=== PATIENT | female | born 1950 | race Hispanic/Latino ===

== ENCOUNTER 2019-12-25 13:30 | Inpatient (IN) | payer MEDICARE, OTHER ==
[~2019-12-25] VITALS: Ht 152.4 cm; Wt 97.2 kg
[2019-12-25] MEDS ORDERED: SODIUM CHLORIDE 0.9% 1000ML 1,000 ML IV STA (14:27)
[2019-12-25] MEDS: CEFTRIAXONE SOD 1 GM/NS 50 ML 50 ML IV SCH (14:35)
[2019-12-25] MEDS: AZITHROMYCIN 500MG/NS 250 ML 250 ML IV SCH (15:05)
--- NOTE | 2019-12-25 15:13 | Diagnostic Imaging Report ---
EXAMINATION: CHEST SINGLE (PORTABLE) INDICATION: Shortness of breath, hypoxia COMPARISON: None FINDINGS: LINES/TUBES:Back or EKG LUNGS:The lungs are moderately inflated. Mild bibasilar patchy opacities appear PLEURA:No pleural effusion or pneumothorax. MEDIASTINUM:The cardiomediastinal silhouette appears normal in size and shape. BONES/SOFT TISSUES:No acute osseous injury. ABDOMEN:No free air under the diaphragm. IMPRESSION: Mild bibasilar patchy opacities can be seen in the setting of interstitial edema or pneumonitis, including of viral etiologies. Signed by: Radha Grubbs MD on 12/25/2019 3:10 PM
[2019-12-25 15:26] LABS: BASOPHILS % 0.3 % (0.0-1.0); EOSINOPHILS # (AUTO) 0.2 (0.0-0.4); EOSINOPHILS % 3.3 % (0.0-6.0); HEMATOCRIT 40.7 % (34.2-44.1); HEMOGLOBIN 12.5 g/dL (12.0-16.0); LYMPHOCYTES # (AUTO) 0.6 (1.0-3.2); LYMPHOCYTES % 10.1 % (18.0-39.1); MEAN CORPUSCULAR HEMOGLOBIN 27.5 pg (28-32); MEAN CORPUSCULAR HGB CONC 30.7 g/dL (31-35); MEAN CORPUSCULAR VOLUME 89.5 fL (81-99); MONOCYTES # (AUTO) 0.3 (0.2-0.8); MONOCYTES % 5.5 % (4.4-11.3); NEUTROPHILS # (AUTO) 4.7 (2.1-6.9); NEUTROPHILS % 80.5 % (38.7-80.0); PLATELET COUNT 252 x10e3/uL (140-360); RED BLOOD COUNT 4.55 x10e6/uL (3.6-5.1); RED CELL DISTRIBUTION WIDTH 14.5 % (11.7-14.4)
[2019-12-25 15:34] LABS: INR 0.96; PROTHROMBIN TIME 13.4 seconds (11.9-14.5)
[2019-12-25 15:35] LABS: PARTIAL THROMBOPLASTIN TIME 39.4 seconds (23.8-35.5)
[2019-12-25 15:44] LABS: ALANINE AMINOTRANSFERASE 18 IU/L (0-55); ALBUMIN 2.7 g/dL (3.5-5.0); ALBUMIN/GLOBULIN RATIO 0.6 (0.8-2.0); ALKALINE PHOSPHATASE 120 IU/L (40-150); ANION GAP 11.3 mmol/L (8-16); BLOOD UREA NITROGEN 8 mg/dL (7-26); BUN/CREATININE RATIO 12 (6-25); CALCIUM 9.1 mg/dL (8.4-10.2); CARBON DIOXIDE 29 mmol/L (22-29); CHLORIDE 102 mmol/L (98-107); CREATINE KINASE 31 IU/L (29-168); CREATININE, SERUM 0.69 mg/dL (0.57-1.11); EST GLOMERULAR FILTRATION RATE > 60 ML/MIN (60-); GLUCOSE 121 mg/dL (74-118); POTASSIUM 4.3 mmol/L (3.5-5.1); SODIUM 138 mmol/L (136-145)
[2019-12-25 15:49] LABS: B-TYPE NATRIURETIC PEPTIDE2 41.1 pg/mL (0-100)
[2019-12-25 15:52] LABS: CREATINE KINASE MB < 0.10 ng/mL (0-5.0)
[2019-12-25] MEDS ORDERED: SODIUM CHLORIDE 0.9% 1000ML 1,000 ML IV SCH (16:15)
--- NOTE | 2019-12-25 16:50 | Emergency Department Note ---
History of Present Illnes History of Present Illness Chief Complaint: COVID PUI History of Present Illness This is a 69 year old female HERE FOR COVID SYMPTOMS, STATES THAT SHE CANT BREATHE, SATS ARE 78% ON ROOM AIR. REPORTS COUGH AND SOB. Historian: Patient Arrival Mode: Car Riprap Placer Required: No Onset (how long ago): day(s) (3) Radiation: Reports non-radiation Severity: moderate Onset quality: gradual Timing of current episode: constant Progression: waxing and waning Chronicity: new Context: Reports recent illness Relieving factors: none Exacerbating factors: none Associated symptoms: Reports cough, Reports fever/chills, Reports shortness of breath, Reports weakness Treatments prior to arrival: none Past Medical/Family History Physician Review I have reviewed the patient's past medical and family history. Any updates have been documented here. Past Medical History Recent Fever: No Clinical Suspicion of Infectio: Yes New/Unexplained Change in Ment: No Past Medical History: Hypothyroidism, GERD Past Surgical History: None Social History Smoking Cessation: Never Smoker Counseling Performed: No Alcohol Use: None Any Illegal Drug Use: No TB Exposure/Symptoms: No Physically hurt or threatened: No Other Any Pre-Existing Lines (PICC,: No Is patient up to date on immun: Yes Last Flu: utd Last Pneumovax: utd Review of Systems Review of Systems Constitutional: Reports as per HPI, Reports chills, Reports fever, Reports malaise EENTM: Reports no symptoms Cardiovascular: Reports no symptoms Respiratory: Reports as per HPI, Reports cough, Reports dyspnea Gastrointestinal: Reports no symptoms Genitourinary: Reports no symptoms Musculoskeletal: Reports no symptoms Integumentary: Reports no symptoms Neurological: Reports no symptoms Psychological: Reports no symptoms Endocrine: Reports no symptoms Hematological/Lymphatic: Reports no symptoms Physical Exam Related Data Allergies: Coded Allergies: No Known Drug Allergies (Verified Allergy, Intermediate, 05/17/09) Triage Vital Signs Vital Signs Date Time Temp Pulse Resp B/P (MAP) Pulse Ox O2 Delivery O2 Flow Rate FiO2 12/25/19 14:07 98.3 105 30 115/58 79 Vital signs reviewed: Yes Physical Exam CONSTITUTIONAL Constitutional: Present ill appearing HENT HENT: Present normocephalic, Present atraumatic, Present oropharynx clear/moist, Present nose normal HENT L/R: Present left ext ear normal, Present right ext ear normal EYES Eyes: Reports PERRL, Reports conjunctivae normal NECK Neck: Present ROM normal PULMONARY Pulmonary: Present respiratory distress (TACHYPNEIC, LOW O2 SAT 78% ON RA), Present other (DECR BS'S THOUGHOUT) CARDIOVASCULAR Cardiovascular: Present regular rhythm, Present tachycardia GASTROINTESTINAL Abdominal: Present soft, Present nontender, Present bowel sounds normal GENITOURINARY Genitourinary: Present exam deferred SKIN Skin: Present warm, Present dry MUSCULOSKELETAL Musculoskeletal: Present ROM normal NEUROLOGICAL Neurological: Present alert, Present oriented x 3, Present no gross motor or sensory deficits PSYCHOLOGICAL Psychological: Present mood/affect normal, Present judgement normal Results Laboratory Result Diagram: 12/25/19 1435 12/25/19 1435 Laboratory Laboratory Tests Test 12/25/19 14:35 White Blood Count 5.84 x10e3/uL (4.8-10.8) Red Blood Count 4.55 x10e6/uL (3.6-5.1) Hemoglobin 12.5 g/dL (12.0-16.0) Hematocrit 40.7 % (34.2-44.1) Mean Corpuscular Volume 89.5 fL (81-99) Mean Corpuscular Hemoglobin 27.5 pg (28-32) Mean Corpuscular Hemoglobin Concent 30.7 g/dL (31-35) Red Cell Distribution Width 14.5 % (11.7-14.4) Platelet Count 252 x10e3/uL (140-360) Neutrophils (%) (Auto) 80.5 % (38.7-80.0) Lymphocytes (%) (Auto) 10.1 % (18.0-39.1) Monocytes (%) (Auto) 5.5 % (4.4-11.3) Eosinophils (%) (Auto) 3.3 % (0.0-6.0) Basophils (%) (Auto) 0.3 % (0.0-1.0) Neutrophils # (Auto) 4.7 (2.1-6.9) Lymphocytes # (Auto) 0.6 (1.0-3.2) Monocytes # (Auto) 0.3 (0.2-0.8) Eosinophils # (Auto) 0.2 (0.0-0.4) Basophils # (Auto) 0.0 (0.0-0.1) Absolute Immature Granulocyte (auto 0.02 x10e3/uL (0-0.1) Prothrombin Time 13.4 seconds (11.9-14.5) Prothromb Time International Ratio 0.96 Activated Partial Thromboplast Time 39.4 seconds (23.8-35.5) Sodium Level 138 mmol/L (136-145) Potassium Level 4.3 mmol/L (3.5-5.1) Chloride Level 102 mmol/L (98-107) Carbon Dioxide Level 29 mmol/L (22-29) Anion Gap 11.3 mmol/L (8-16) Blood Urea Nitrogen 8 mg/dL (7-26) Creatinine 0.69 mg/dL (0.57-1.11) Estimat Glomerular Filtration Rate > 60 ML/MIN (60-) BUN/Creatinine Ratio 12 (6-25) Glucose Level 121 mg/dL (74-118) Lactic Acid Level 1.1 mmol/L (0.5-2.0) Calcium Level 9.1 mg/dL (8.4-10.2) Total Bilirubin 0.4 mg/dL (0.2-1.2) Aspartate Amino Transf (AST/SGOT) 36 IU/L (5-34) Alanine Aminotransferase (ALT/SGPT) 18 IU/L (0-55) Alkaline Phosphatase 120 IU/L (40-150) Creatine Kinase 31 IU/L (29-168) Creatine Kinase MB < 0.10 ng/mL (0-5.0) Troponin I 0.007 ng/mL (0-0.300) B-Type Natriuretic Peptide 41.1 pg/mL (0-100) Total Protein 7.6 g/dL (6.5-8.1) Albumin 2.7 g/dL (3.5-5.0) Globulin 4.9 g/dL (2.3-3.5) Albumin/Globulin Ratio 0.6 (0.8-2.0) Lab results reviewed: Yes Imaging Imaging results reviewed: Yes Impressions Procedure: [id number] DX/CHEST SINGLE (PORTABLE) Exam Date: 12/25/19 Exam Time: 6356 REPORT STATUS: Signed EXAMINATION: CHEST SINGLE (PORTABLE) INDICATION: Shortness of breath, hypoxia COMPARISON: None FINDINGS: LINES/TUBES:Back or EKG LUNGS:The lungs are moderately inflated. Mild bibasilar patchy opacities appear PLEURA:No pleural effusion or pneumothorax. MEDIASTINUM:The cardiomediastinal silhouette appears normal in size and shape. BONES/SOFT TISSUES:No acute osseous injury. ABDOMEN:No free air under the diaphragm. IMPRESSION: Mild bibasilar patchy opacities can be seen in the setting of interstitial edema or pneumonitis, including of viral etiologies. Signed by: Radha Grubbs MD on 12/25/2019 3:10 PM Procedures 12 Lead ECG Interpretation ECG Interpretation : ECG: ECG 1 Riprap Placer: Interpreted by ED physician Date: Dec 25, 2019 Time: 14:58 Rhythm: sinus rhythm Rate: normal (100) QRS axis: normal ST segments normal: Yes T wave inversion: I, II, aVL, aVF, V4, V5, V6 Clinical Impression: abnormal ECG Assessment & Plan Medical Decision Making MDM CBC, CHEM, ECG, CARDIACS, BNP, LACTIC ACID, CXR, BLOOD CX'S, COVID SWAB - R/O PNEUMONIA, COVID19, SEPSIS, CHF, STEMI/NSTEMI, ELECTROLYTE ABNL Reassessment Reassessment SPOKE WITH MACEY MORALES STEIN Assessment & Plan Final Impression: (1) Pneumonia Depart Disposition: ADMITTED Last Vital Signs Date Time Temp Pulse Resp B/P (MAP) Pulse Ox O2 Delivery O2 Flow Rate FiO2 12/25/19 14:38 97 35 131/67 96 12/25/19 14:07 98.3 Medications in the ED Sodium Chloride 1,000 ml @ 0 mls/hr Q0M STAT IV Last administered on 12/25/19at 14:35; Admin Dose 999 MLS/HR; Start 12/25/19 at 14:27; Stop 12/25/19 at 14:30; Status DC Ceftriaxone Sodium 50 ml @ 100 mls/hr Q24H IV Last administered on 12/25/19at 14:35; Admin Dose 100 MLS/HR; Start 12/25/19 at 14:45; Stop 01/01/20 at 14:44 Azithromycin 250 ml @ 200 mls/hr DAILY IV Last administered on 12/25/19at 15:05; Admin Dose 200 MLS/HR; Start 12/25/19 at 15:30; Stop 01/01/20 at 15:29 JOANN MONTERO MD Dec 25, 2019 16:50
[2019-12-25] MEDS ORDERED: DEXAMETHASONE SOD PHOS 10 MG/1 ML VIAL IV SCH (18:00)
--- NOTE | 2019-12-25 18:03 | NUR ---
spoke with respiratory and informed them on ABG order.
[2019-12-25] MEDS ORDERED: DEXTROSE 50% SYRINGE 50 ML IV PRN (18:15)
[2019-12-25] MEDS: FAMOTIDINE 20 MG/2 ML VIAL IV SCH (18:25)
--- NOTE | 2019-12-25 18:52 | NUR ---
report given to Camron LAKHANI
[2019-12-25 19:10] LABS: ABG HCO3 23 mmol/L (22-26); ABG PCO2 40 mmHg (35-45); ABG PH 7.37 (7.35-7.45); ABG PO2 73 mmHg (80-105)
--- NOTE | 2019-12-25 20:02 | Diagnostic Imaging Report ---
EXAM: CT Chest WITHOUT contrast INDICATION: ^abn cxr COMPARISON: None TECHNIQUE: Chest was scanned utilizing a multidetector helical scanner from the lung apex through the level of the adrenal glands without administration of IV contrast. Absence of intravenous contrast decreases sensitivity for detection of lymphadenopathy and vascular pathology. Coronal and sagittal reformations were obtained. Routine protocol was performed. IV CONTRAST: None COMPLICATIONS: None RADIATION DOSE: Total DLP: 414.32 mGy*cm Estimated effective dose: (DLP x 0.014 x size factor) mSv CTDIvol has been reviewed. It is below the limits set by the Radiation Protocol Committee (RPC). FINDINGS: LINES/ TUBES: None. LUNGS AND AIRWAYS: Extensive bilateral patchy groundglass consolidations. the central airways are normal. PLEURA: The pleural spaces are clear. HEART AND MEDIASTINUM: The thyroid gland is heterogeneous. Prominent mediastinal and hilar lymphadenopathy are likely reactive. The heart is mildly enlarged.. There is no pericardial effusion. There are mild atherosclerotic calcifications in the aorta and coronary arteries. UPPER ABDOMEN: Status post cholecystectomy BONES: There are degenerative changes in the spine. SOFT TISSUES: Unremarkable. IMPRESSION: Extensive bilateral patchy groundglass consolidations is compatible with multifocal/viral pneumonia. Signed by: Carlito Quesada MD on 12/25/2019 7:59 PM
[2019-12-25] MEDS: ENOXAPARIN SOD INJ 40 MG/0.4 ML SYR SC SCH (21:50)
[2019-12-25] MEDS: INSULIN LISPRO 100 UNIT/1 ML 3ML VIAL SQ SCH (21:56)
--- NOTE | 2019-12-25 22:37 | Consultation ---
DATE OF CONSULTATION: Pulmonary Consultation HISTORY OF PRESENT ILLNESS: The patient admitted through the emergency room department. She has been sick for approximately 8 days. She had COVID test this week, which she was told was positive in her doctor's office. She came to the emergency room short of breath with O2 saturation of 78%. She has been coughing for a week with chills and fever, but no sputum. She has been progressively short of breath over the last 24 hours. She takes medications for hypothyroidism, depression, gastroesophageal reflux, and vitamin D deficiency. SOCIAL HISTORY: She works cleaning. Born in , [place]. Nonsmoker. No alcohol. FAMILY HISTORY: Positive for hypertension. PAST SURGICAL HISTORY: She has had a hysterectomy in the past. ALLERGIES: SHE HAS NO KNOWN ALLERGIES. PAST MEDICAL HISTORY: Does have a history of depression. HOME MEDICATIONS: Did not list her home medications. PHYSICAL EXAMINATION: GENERAL: This is a well-developed white female, anxious. VITAL SIGNS: Temperature 98.3, pulse 105, respirations 20, blood pressure 115/57. HEAD: Normocephalic, atraumatic. EYES: Extraocular movements intact. LUNGS: Bibasilar rales. ABDOMEN: Nontender. EXTREMITIES: Nonedematous. IMPRESSION: One of COVID pneumonia, history of hypothyroidism. Discussed with Infectious Disease Service, who considered remdesivir, begin dexamethasone. Empiric antibiotics therapy for bacterial infection, atypical infection, prophylactic Lovenox. Monitor blood sugars. Thank you for this kind referral. MD WATSON Gunn/ORESTES /[id number]
[2019-12-25 23:10] VITALS: BP 138/92
[2019-12-26] VITALS (7 sets, daily range): BP systolic 113–146; BP diastolic 65–84
[2019-12-26 02:26] LABS: CREATINE KINASE 31 IU/L (29-168)
[2019-12-26] MEDS: LEVOTHYROXINE SODIUM 112 MCG TAB PO SCH (06:05)
[2019-12-26] MEDS: INSULIN LISPRO 100 UNIT/1 ML 3ML VIAL SQ SCH ×4 (07:30→21:00)
[2019-12-26] MEDS ORDERED: PANTOPRAZOLE SOD 40 MG TABEC PO SCH (07:30)
--- NOTE | 2019-12-26 07:46 | Diagnostic Imaging Report ---
EXAMINATION: CHEST SINGLE (PORTABLE) INDICATION: PNEMONIA COMPARISON: Chest x-ray dated 12/25/2019. CT chest deficits 620. FINDINGS: AP view TUBES and LINES: None. LUNGS/PLEURA: Lungs are well inflated. Unchanged bilateral patchy groundglass opacities compatible with multifocal/viral pneumonia. There is no pleural effusion or pneumothorax. HEART AND MEDIASTINUM: Cardiac size is mildly enlarged. BONES AND SOFT TISSUES: No acute osseous lesion. Soft tissues are unremarkable. UPPER ABDOMEN: No free air under the diaphragm. IMPRESSION: Unchanged bilateral patchy groundglass opacities compatible with multifocal/viral pneumonia. Signed by: Carlito Quesada MD on 12/26/2019 7:43 AM
[2019-12-26] MEDS: FAMOTIDINE 20 MG/2 ML VIAL IV SCH ×2 (09:49→18:06)
[2019-12-26] MEDS: AZITHROMYCIN 500MG/NS 250 ML 250 ML IV SCH (09:49)
[2019-12-26] MEDS: ENOXAPARIN SOD INJ 40 MG/0.4 ML SYR SC SCH ×2 (09:49→21:55)
[2019-12-26] MEDS: SERTRALINE HCL 50 MG TAB PO SCH (09:49)
[2019-12-26] MEDS ORDERED: DEXAMETHASONE SOD PHOS 10 MG/1 ML VIAL IV ONE (10:45)
[2019-12-26] MEDS ORDERED: SODIUM CHLORIDE 0.9% 250ML 250 ML ONE (10:52)
--- NOTE | 2019-12-26 11:14 | History and Physical ---
PRIMARY CARE PHYSICIAN: Dr. Ro Smith. CONSULTANTS: 1. Dr. Jed Castle. 2. Dr. Laura Villafuerte. CHIEF COMPLAINT: Acute hypoxia secondary to COVID-19 positive. HISTORY OF PRESENT ILLNESS: The patient is a 69-year-old female and was positive for COVID-19. The patient was having increasing shortness of breath. The patient was sent to the emergency room by primary care physician. The patient in the emergency room, WBC was 5.8 with neutrophil 80.5%. The patient's chemistry panel was otherwise unremarkable. The patient had a CT of the chest done, found to have extensive bilateral patchy ground-glass consolidation, is compatible with multifocal viral pneumonia. The patient is admitted for COVID-19 pneumonia. The patient is getting treatment. She is getting increasing shortness of breath. She is having high-flow oxygen at this time. When she get out of bed to go to the commode, she has increase in shortness of breathing. She has also complained of some throat discomfort. The patient stated that one of her kids was positive as well. The other one is still pending on testing. The patient is otherwise stable. PAST MEDICAL HISTORY: Hypothyroidism, reflux, depression, and obesity. PAST SURGICAL HISTORY: Hysterectomy. SOCIAL HISTORY: The patient does not smoke or use alcohol. No regular drugs. ALLERGIES: NO KNOWN ALLERGIES. HOME MEDICATIONS: 1. Levothyroxine. 2. Pantoprazole. PHYSICAL EXAMINATION: VITAL SIGNS: Temperature is 98, blood pressure 144/84, pulse rate 96, respirations 22. GENERAL: The patient is comfortable, lying in bed, although she is getting short of breath when she coughs. She has complained of throat pain, but otherwise she is not in any distress. HEENT: Normocephalic and atraumatic. Anicteric. NECK: Supple grossly. PULMONARY: Diminished breath sounds bilaterally with coarses. CARDIOVASCULAR: Regular rate and rhythm. ABDOMEN: Small and is obese. EXTREMITIES: No cyanosis or edema. NEUROLOGIC: No focal deficit. LABORATORY DATA: Sodium is 138, potassium 4.3, chloride 102, bicarb is 29, BUN is 8, creatinine 0.7 glucose 121, calcium is 9.1, lactic acid is 1.1, AST 36, ALT 18, alkaline phosphate 120. Troponin 0.007. Albumin is 2.7. TSH is 1.17. WBC is 5.8, hemoglobin 12.5, hematocrit 40.7, and platelets is 252. Serologies, coronavirus PCR detected. CT scan, as mentioned above, bilateral infiltrate, patchy ground-glass consolidation. IMPRESSION: 1. Coronavirus disease-2019 positive pneumonia. 2. Hypoxia. 3. Obesity. 4. Hypertension. PLAN: Continue with supportive measures. The patient on antibiotics. PPI. Resume thyroid medication. Resume sertraline for depression. IV Pepcid. The patient is getting Lovenox 40 mg subcu q.12 hours. She did receive dexamethasone. Azithromycin, Rocephin. Discontinue IV fluids for now. We will monitor the patient's electrolytes and renal function. We will follow up on Dr. Villafuerte and Dr. Castle, consultation and recommendation for treatment. MD RAVEN Marley/DOMINICL /[id number]
[2019-12-26 11:16] LABS: BASOPHILS % 0.4 % (0.0-1.0); HEMATOCRIT 40.2 % (34.2-44.1); HEMOGLOBIN 12.3 g/dL (12.0-16.0); LYMPHOCYTES # (AUTO) 0.8 (1.0-3.2); MEAN CORPUSCULAR HEMOGLOBIN 27.9 pg (28-32); MEAN CORPUSCULAR HGB CONC 30.6 g/dL (31-35); MEAN CORPUSCULAR VOLUME 91.2 fL (81-99); MONOCYTES # (AUTO) 0.3 (0.2-0.8); MONOCYTES % 6.5 % (4.4-11.3); NEUTROPHILS # (AUTO) 3.9 (2.1-6.9); NEUTROPHILS % 76.9 % (38.7-80.0); PLATELET COUNT 202 x10e3/uL (140-360); RED BLOOD COUNT 4.41 x10e6/uL (3.6-5.1); RED CELL DISTRIBUTION WIDTH 14.6 % (11.7-14.4)
[2019-12-26] MEDS: NYSTATIN SUSPENSION 5 ML UDC PO SCH ×3 (11:31→21:55)
[2019-12-26] MEDS: DEXAMETHASONE PHOS 4MG/ML 5ML MULTIDOSE VIAL IV SCH (11:31)
[2019-12-26] MEDS: MAALOX/LIDOCAINE/BENADRYL/NYST 30 ML BTL PO SCH ×2 (11:32→18:06)
[2019-12-26 11:35] LABS: ALANINE AMINOTRANSFERASE 17 IU/L (0-55); ALBUMIN 2.4 g/dL (3.5-5.0); ALBUMIN/GLOBULIN RATIO 0.5 (0.8-2.0); ALKALINE PHOSPHATASE 136 IU/L (40-150); ANION GAP 12.2 mmol/L (8-16); BLOOD UREA NITROGEN 9 mg/dL (7-26); BUN/CREATININE RATIO 15 (6-25); CALCIUM 9.2 mg/dL (8.4-10.2); CARBON DIOXIDE 24 mmol/L (22-29); CHLORIDE 104 mmol/L (98-107); CREATININE, SERUM 0.61 mg/dL (0.57-1.11); EST GLOMERULAR FILTRATION RATE > 60 ML/MIN (60-); GLUCOSE 120 mg/dL (74-118); POTASSIUM 4.2 mmol/L (3.5-5.1); SODIUM 136 mmol/L (136-145)
[2019-12-26 11:40] LABS: CREATINE KINASE MB 0.3 ng/mL (0-5.0)
[2019-12-26] MEDS ORDERED: SUCCINYLCHOLINE CHLORIDE 20 MG/ML 10ML VIAL ONE (13:52)
[2019-12-26] MEDS ORDERED: ETOMIDATE 2 MG/ML 10 ML INJ IV ONE (13:52)
[2019-12-26] MEDS: CEFTRIAXONE SOD 1 GM/NS 50 ML 50 ML IV SCH (14:26)
--- NOTE | 2019-12-26 14:45 | NUR ---
Spoke with Dr. Alvarez regarding patient's easily getting SOB every diaper change. Patient has urinary frequency and loose stool. Patient is unable to use bedside commode at this time because her oxygen saturation drops quickly to 81%. Verbal order given to place pantoja catheter.
--- NOTE | 2019-12-26 16:03 | NUR ---
Urinary catheter 16F inserted as ordered with another RN. Patient easily gets SOB with moving in bed. hi-flow O@ 15L via NC.
--- NOTE | 2019-12-26 16:39 | NUR ---
d w patient RMZV facts given she agreed to take
[2019-12-26] MEDS ORDERED: REMDESIVIR 200MG/NS 100ML 200 MG in SODIUM CHLORIDE 0.9% 100 ML 100 ML IV ONE (16:45)
--- NOTE | 2019-12-26 21:06 | Consultation ---
DATE OF CONSULTATION: 12/26/2019 HISTORY OF PRESENT ILLNESS: Ms. Gordon is a 69-year-old female, comes into the emergency room because she has been sick for 8 days. Her COVID came back positive. She was sent here. She is currently lying in bed comfortably. She said she is feeling better. PAST MEDICAL HISTORY: Hypothyroidism, depression, gastroesophageal reflux disease, and vitamin D deficiency. ALLERGIES: NKA. SOCIAL HISTORY: There is no smoking, drug abuse, or alcohol abuse. FAMILY HISTORY: Hypertension. PHYSICAL EXAMINATION: GENERAL: Currently alert and oriented, does not seem to be in acute distress. VITAL SIGNS: Stable, currently afebrile. HEENT: She is not icteric. NECK: Supple. CHEST: Crackles bilateral. HEART: S1 and S2. ABDOMEN: Soft. LABORATORY DATA: White count 5.27, hemoglobin 12, hematocrit of 40. Sodium 136, potassium 4.2 with a creatinine of 0.6. MEDICATIONS: The patient is seen and examined. She is currently on dexamethasone, Rocephin, Lovenox, and azithromycin. IMPRESSION: Coronavirus disease 2019, present on admission. Antibiotic and medication discussed with Medical team. Please refer to orders. We will also discuss with the patient about remdesivir, which is the drug they approved, is still in trial, but the patient is interested given the fact treated with remdesivir. I will start on available. MD SUSY Lovett/ORESTES /[id number]
[2019-12-26] MEDS: ALBUTEROL SULFATE HFA 8GM INHALATION AEROSOL INH PRN (22:00)
--- NOTE | 2019-12-26 22:50 | NUR ---
SPOKE TO DR. SHARMA REGARDING PATIENT O2 SAT IN THE 70'S WITH O2 NASAL CANNULA HIGH FLOW 15L. SAID TO CALL RAPID. RAPID RESPONSE CALLED AND THEN PATIENT TRANSFERRED TO ICU ROOM 189.
[2019-12-27] VITALS (26 sets, daily range): BP systolic 96–139; BP diastolic 54–99
--- NOTE | 2019-12-27 00:01 | NUR ---
NOTIFIED DR. APODACA REGARDING PATIENT TRANSFER TO ICU ROOM 189
[2019-12-27 05:42] LABS: BASOPHILS % 0.2 % (0.0-1.0); HEMATOCRIT 37.6 % (34.2-44.1); HEMOGLOBIN 11.9 g/dL (12.0-16.0); LYMPHOCYTES # (AUTO) 0.7 (1.0-3.2); LYMPHOCYTES % 14.9 % (18.0-39.1); MEAN CORPUSCULAR HEMOGLOBIN 28.7 pg (28-32); MEAN CORPUSCULAR HGB CONC 31.6 g/dL (31-35); MEAN CORPUSCULAR VOLUME 90.8 fL (81-99); MONOCYTES # (AUTO) 0.3 (0.2-0.8); MONOCYTES % 6.9 % (4.4-11.3); NEUTROPHILS # (AUTO) 3.7 (2.1-6.9); NEUTROPHILS % 77.8 % (38.7-80.0); PLATELET COUNT 222 x10e3/uL (140-360); RED BLOOD COUNT 4.14 x10e6/uL (3.6-5.1); RED CELL DISTRIBUTION WIDTH 14.5 % (11.7-14.4)
[2019-12-27 06:25] LABS: ANION GAP 14.2 mmol/L (8-16); BLOOD UREA NITROGEN 12 mg/dL (7-26); BUN/CREATININE RATIO 19 (6-25); CALCIUM 9.2 mg/dL (8.4-10.2); CARBON DIOXIDE 25 mmol/L (22-29); CHLORIDE 105 mmol/L (98-107); CREATININE, SERUM 0.64 mg/dL (0.57-1.11); EST GLOMERULAR FILTRATION RATE > 60 ML/MIN (60-); GLUCOSE 125 mg/dL (74-118); POTASSIUM 4.2 mmol/L (3.5-5.1); SODIUM 140 mmol/L (136-145)
--- NOTE | 2019-12-27 07:08 | Diagnostic Imaging Report ---
Examination: Single AP view of the chest. COMPARISON: Portable chest 12/26/2019 INDICATION: COVID pneumonia. IMPRESSION: 1. Lines and Tubes: None 2. Lungs are well-inflated. No interval change in diffuse bilateral interstitial opacities with more confluent consolidation with air bronchograms in the left retrocardiac region, consistent with pneumonia. Questionable small left pleural effusion. 3. Cardiomediastinal silhouette is mildly enlarged. Pulmonary vasculature is normal. 4. No acute bony abnormalities. Signed by: Dr. Mark Story M.D. on 12/27/2019 7:04 AM
[2019-12-27] MEDS: INSULIN LISPRO 100 UNIT/1 ML 3ML VIAL SQ SCH ×4 (07:30→20:45)
[2019-12-27 07:38] LABS: ALBUMIN 2.3 g/dL (3.5-5.0); BILIRUBIN,DIRECT 0.3 mg/dL (0.0-0.5)
[2019-12-27] MEDS: LEVOTHYROXINE SODIUM 112 MCG TAB PO SCH (07:48)
[2019-12-27] MEDS: NYSTATIN SUSPENSION 5 ML UDC PO SCH ×3 (07:48→21:16)
[2019-12-27] MEDS ORDERED: SODIUM CHLORIDE 0.9% 250ML 250 ML ONE (07:51)
[2019-12-27] MEDS: FAMOTIDINE 20 MG/2 ML VIAL IV SCH ×2 (08:49→16:33)
[2019-12-27] MEDS: SERTRALINE HCL 50 MG TAB PO SCH (08:49)
[2019-12-27] MEDS: AZITHROMYCIN 500MG/NS 250 ML 250 ML IV SCH (08:49)
[2019-12-27] MEDS: PANTOPRAZOLE 40 MG 10ML VIAL INJ SCH (08:49)
[2019-12-27] MEDS: ENOXAPARIN SOD INJ 40 MG/0.4 ML SYR SC SCH ×2 (08:49→20:45)
[2019-12-27] MEDS: MAALOX/LIDOCAINE/BENADRYL/NYST 30 ML BTL PO SCH ×2 (10:18→16:33)
[2019-12-27] MEDS: DEXAMETHASONE PHOS 4MG/ML 5ML MULTIDOSE VIAL IV SCH (10:18)
--- NOTE | 2019-12-27 10:19 | NUR ---
patient instructed and educated with benefits of proning. pt verbalized understanding and agreed . pt is currently in prone position. tolerating prone position well. will continue to monitor and assess status and patient. Addendum: 12/27/19 at 1423 by Lisbeth Nguyen RN patient tolerated proning about an 1hr. encouraging patient to turn frequently. pt tolerating left side laying position.
[2019-12-27] MEDS ORDERED: ACETAMINOPHEN 325 MG TAB ONE (14:04)
[2019-12-27] MEDS: ACETAMINOPHEN 325 MG TAB PO PRN ×2 (14:15→20:35)
[2019-12-27] MEDS ORDERED: ONDANSETRON HCL INJ 2MG/ML 2ML 2 MG/ML VIAL IV PRN (14:15)
[2019-12-27] MEDS: CEFTRIAXONE SOD 1 GM/NS 50 ML 50 ML IV SCH (14:46)
[2019-12-27] MEDS: REMDESIVIR 100MG/NS 100ML 100 MG in SODIUM CHLORIDE 0.9% 100 ML 100 ML IV SCH (16:33)
[2019-12-27] MEDS: ALBUTEROL SULFATE HFA 8GM INHALATION AEROSOL INH PRN (19:50)
[2019-12-28] VITALS (23 sets, daily range): BP systolic 88–131; BP diastolic 46–86
[2019-12-28] MEDS: DEXAMETHASONE PHOS 4MG/ML 5ML MULTIDOSE VIAL IV SCH (06:03)
[2019-12-28] MEDS: LEVOTHYROXINE SODIUM 112 MCG TAB PO SCH (06:03)
[2019-12-28] MEDS: NYSTATIN SUSPENSION 5 ML UDC PO SCH ×3 (06:03→21:59)
[2019-12-28] MEDS: INSULIN LISPRO 100 UNIT/1 ML 3ML VIAL SQ SCH ×4 (07:30→21:30)
[2019-12-28 07:33] LABS: EOSINOPHILS % 0.1 % (0.0-6.0); HEMATOCRIT 36.5 % (34.2-44.1); HEMOGLOBIN 11.6 g/dL (12.0-16.0); LYMPHOCYTES # (AUTO) 0.7 (1.0-3.2); LYMPHOCYTES % 7.6 % (18.0-39.1); MEAN CORPUSCULAR HEMOGLOBIN 27.7 pg (28-32); MEAN CORPUSCULAR HGB CONC 31.8 g/dL (31-35); MEAN CORPUSCULAR VOLUME 87.1 fL (81-99); MONOCYTES # (AUTO) 0.4 (0.2-0.8); MONOCYTES % 4.3 % (4.4-11.3); NEUTROPHILS # (AUTO) 8.5 (2.1-6.9); NEUTROPHILS % 87.6 % (38.7-80.0); PLATELET COUNT 238 x10e3/uL (140-360); RED BLOOD COUNT 4.19 x10e6/uL (3.6-5.1); RED CELL DISTRIBUTION WIDTH 14.3 % (11.7-14.4)
[2019-12-28 07:51] LABS: ALANINE AMINOTRANSFERASE 16 IU/L (0-55); ALBUMIN 2.2 g/dL (3.5-5.0); ALBUMIN/GLOBULIN RATIO 0.5 (0.8-2.0); ALKALINE PHOSPHATASE 101 IU/L (40-150); ANION GAP 11.2 mmol/L (8-16); BLOOD UREA NITROGEN 17 mg/dL (7-26); BUN/CREATININE RATIO 27 (6-25); CALCIUM 8.8 mg/dL (8.4-10.2); CARBON DIOXIDE 24 mmol/L (22-29); CHLORIDE 107 mmol/L (98-107); CREATININE, SERUM 0.62 mg/dL (0.57-1.11); EST GLOMERULAR FILTRATION RATE > 60 ML/MIN (60-); GLUCOSE 101 mg/dL (74-118); POTASSIUM 4.2 mmol/L (3.5-5.1); SODIUM 138 mmol/L (136-145)
[2019-12-28] MEDS: MAALOX/LIDOCAINE/BENADRYL/NYST 30 ML BTL PO SCH ×2 (09:30→16:19)
[2019-12-28] MEDS: FAMOTIDINE 20 MG/2 ML VIAL IV SCH ×2 (10:29→16:52)
[2019-12-28] MEDS: AZITHROMYCIN 500MG/NS 250 ML 250 ML IV SCH (10:29)
[2019-12-28] MEDS: SERTRALINE HCL 50 MG TAB PO SCH (10:29)
[2019-12-28] MEDS: PANTOPRAZOLE 40 MG 10ML VIAL INJ SCH (10:29)
[2019-12-28] MEDS: ENOXAPARIN SOD INJ 40 MG/0.4 ML SYR SC SCH ×2 (10:30→21:30)
--- NOTE | 2019-12-28 15:29 | Progress Note ---
DATE: SUBJECTIVE: Ms. Gordon remains in intensive care unit. Intubated. OBJECTIVE: VITAL SIGNS: Temperature 98.4, heart rate 78, O2 saturation is 90, and respiratory rate is 21. LABORATORY DATA: White count is 9.75 and hemoglobin 11. COVID-19 is positive. C. difficile is negative. Sodium 138, potassium 4.2 with a creatinine 0.62. The patient's chest x-ray showed bilateral infiltrate. IMPRESSION: Respiratory failure, COVID-19. Currently on Lovenox, Pepcid, azithromycin, levothyroxine, Tylenol, remdesivir, and Rocephin. PLAN: To continue as ordered. Ten days of dexamethasone, 5 days of remdesivir. We will reassess. MD SUSY Lovett/MODL /[id number]
[2019-12-28] MEDS: CEFTRIAXONE SOD 1 GM/NS 50 ML 50 ML IV SCH (16:15)
[2019-12-28] MEDS: REMDESIVIR 100MG/NS 100ML 100 MG in SODIUM CHLORIDE 0.9% 100 ML 100 ML IV SCH (16:19)
[2019-12-28] MEDS: LOPERAMIDE HCL 2 MG CAP PO PRN (18:50)
[2019-12-29] VITALS (25 sets, daily range): BP systolic 92–126; BP diastolic 46–81
[2019-12-29] MEDS: VANCOMYCIN 250MG/5ML ORAL SOLN PO SCH ×4 (01:12→17:15)
[2019-12-29 04:57] LABS: ALANINE AMINOTRANSFERASE 16 IU/L (0-55); ALBUMIN 2.3 g/dL (3.5-5.0); ALBUMIN/GLOBULIN RATIO 0.5 (0.8-2.0); ALKALINE PHOSPHATASE 111 IU/L (40-150); ANION GAP 13.1 mmol/L (8-16); BLOOD UREA NITROGEN 18 mg/dL (7-26); BUN/CREATININE RATIO 29 (6-25); CARBON DIOXIDE 22 mmol/L (22-29); CHLORIDE 104 mmol/L (98-107); CREATININE, SERUM 0.63 mg/dL (0.57-1.11); EST GLOMERULAR FILTRATION RATE > 60 ML/MIN (60-); GLUCOSE 98 mg/dL (74-118); POTASSIUM 4.1 mmol/L (3.5-5.1); SODIUM 135 mmol/L (136-145)
[2019-12-29 05:19] LABS: BASOPHILS % 0.1 % (0.0-1.0); HEMOGLOBIN 12.2 g/dL (12.0-16.0); LYMPHOCYTES # (AUTO) 0.8 (1.0-3.2); LYMPHOCYTES % 9.2 % (18.0-39.1); MEAN CORPUSCULAR HEMOGLOBIN 27.7 pg (28-32); MEAN CORPUSCULAR HGB CONC 32.1 g/dL (31-35); MEAN CORPUSCULAR VOLUME 86.4 fL (81-99); MONOCYTES # (AUTO) 0.6 (0.2-0.8); MONOCYTES % 6.5 % (4.4-11.3); NEUTROPHILS # (AUTO) 7.6 (2.1-6.9); NEUTROPHILS % 83.8 % (38.7-80.0); PLATELET COUNT 251 x10e3/uL (140-360); RED CELL DISTRIBUTION WIDTH 14.3 % (11.7-14.4)
[2019-12-29] MEDS ORDERED: DEXAMETHASONE SOD PHOS 10 MG/1 ML VIAL ONE (05:25)
[2019-12-29] MEDS: DEXAMETHASONE PHOS 4MG/ML 5ML MULTIDOSE VIAL IV SCH (06:11)
[2019-12-29] MEDS: NYSTATIN SUSPENSION 5 ML UDC PO SCH ×3 (06:11→22:28)
[2019-12-29] MEDS: LEVOTHYROXINE SODIUM 112 MCG TAB PO SCH (06:11)
[2019-12-29] MEDS: INSULIN LISPRO 100 UNIT/1 ML 3ML VIAL SQ SCH ×4 (07:30→21:00)
[2019-12-29] MEDS: FAMOTIDINE 20 MG/2 ML VIAL IV SCH ×2 (08:11→17:15)
[2019-12-29] MEDS: SERTRALINE HCL 50 MG TAB PO SCH (08:11)
[2019-12-29] MEDS: CHOLESTYRAMINE 4 GM PACKET PO SCH ×2 (08:11→17:15)
[2019-12-29] MEDS: ENOXAPARIN SOD INJ 40 MG/0.4 ML SYR SC SCH ×2 (08:11→21:00)
[2019-12-29] MEDS: BENZONATATE 100 MG CAP PO PRN (08:11)
[2019-12-29] MEDS: MAALOX/LIDOCAINE/BENADRYL/NYST 30 ML BTL PO SCH ×2 (08:11→17:15)
[2019-12-29] MEDS: PANTOPRAZOLE 40 MG 10ML VIAL INJ SCH (08:11)
--- NOTE | 2019-12-29 08:30 | Diagnostic Imaging Report ---
EXAM: CHEST SINGLE (PORTABLE) DATE: 12/29/2019 6:00 AM INDICATION: Pneumonia COMPARISON: 12/27/2019 FINDINGS/IMPRESSION: Again identified are patchy interstitial and airspace opacities bilaterally with the lower lung zone predominance. Findings are not significantly changed from the prior examination from 12/27/2019. There is no evidence for pneumothorax or significant volume pleural effusion. The cardiomediastinal silhouette is stable in appearance. No acute osseous abnormalities identified. Signed by: Dr. Endy Perez MD on 12/29/2019 8:27 AM
--- NOTE | 2019-12-29 11:38 | Progress Note ---
DATE: SUBJECTIVE: Discussed with the nurse. Currently, comfortable in bed. Remains on non-rebreather and Vapotherm, saturating at 88%, had about 650 mL of urine output. She has diarrhea. She does not like the food here, but she eats mostly puddings and stuff like that and she apparently hold that down okay. PHYSICAL EXAMINATION: VITAL SIGNS: Temperature is 98.1, pulse of 74, respirations 25, and blood pressure 122/62. LABORATORY STUDIES: White count of 9.05, hemoglobin 12.2, and platelets are 251. Sodium 135, potassium 4.1, creatinine 0.63. Serology, Coronavirus PCR detected on 12/24. C diff toxin A and B negative on 12/26/2019, recheck stool for C diff sent in per my discussion with staff. Clinically, in no acute distress. ASSESSMENT AND PLAN: 1. Respiratory failure. 2. COVID-19. 3. Diarrhea. 4. Debility. 5. Poor appetite. The patient remains on remdesivir, dexamethasone, vancomycin p.o., and enoxaparin. We will add zinc and vitamin C. The patient is total of 10 days of dexamethasone and 5 days of remdesivir. Medication list reviewed and continue to monitor the patient clinically and follow with the labs again. Dictated by Carlito Fischer PA-C (Al) Laura Villafuerte MD /MODL /[id number]
[2019-12-29] MEDS: REMDESIVIR 100MG/NS 100ML 100 MG in SODIUM CHLORIDE 0.9% 100 ML 100 ML IV SCH (17:00)
[2019-12-30] VITALS (26 sets, daily range): BP systolic 102–126; BP diastolic 44–81
[2019-12-30] MEDS ORDERED: DEXAMETHASONE SOD PHOS 10 MG/1 ML VIAL ONE (04:35)
[2019-12-30] MEDS: DEXAMETHASONE PHOS 4MG/ML 5ML MULTIDOSE VIAL IV SCH (05:51)
[2019-12-30] MEDS: NYSTATIN SUSPENSION 5 ML UDC PO SCH ×3 (05:51→21:31)
[2019-12-30] MEDS: VANCOMYCIN 250MG/5ML ORAL SOLN PO SCH ×5 (05:51→23:55)
[2019-12-30] MEDS: LEVOTHYROXINE SODIUM 112 MCG TAB PO SCH (05:51)
[2019-12-30] MEDS: INSULIN LISPRO 100 UNIT/1 ML 3ML VIAL SQ SCH ×4 (07:30→21:00)
[2019-12-30] MEDS: ASCORBIC ACID 500 MG TAB PO SCH (08:09)
[2019-12-30] MEDS: CHOLESTYRAMINE 4 GM PACKET PO SCH ×2 (08:09→16:23)
[2019-12-30] MEDS: SERTRALINE HCL 50 MG TAB PO SCH (08:09)
[2019-12-30] MEDS: ZINC SULFATE 220 MG CAP PO SCH (08:09)
[2019-12-30] MEDS: ENOXAPARIN SOD INJ 40 MG/0.4 ML SYR SC SCH ×2 (08:09→21:28)
[2019-12-30] MEDS: MAALOX/LIDOCAINE/BENADRYL/NYST 30 ML BTL PO SCH ×2 (08:10→16:23)
[2019-12-30] MEDS: FAMOTIDINE 20 MG/2 ML VIAL IV SCH ×2 (08:10→16:23)
--- NOTE | 2019-12-30 13:08 | Progress Note ---
DATE: SUBJECTIVE: The patient seen and evaluated. Available labs and notes reviewed. Discussed with the nurse. REVIEW OF SYSTEMS: Still with diarrhea, the patient says that she is tired of it. Otherwise, breathing improves and she is able to take the non-rebreather off and stay on Vapotherm and eat, this is something that she could not do yesterday. So, breathing is improved, and clinically she is improved, no obvious acute finding. PHYSICAL EXAMINATION: VITAL SIGNS: Temperature is 98.3, pulse is 65, respirations 26, and blood pressure 111/57. GENERAL: Alert and oriented, very pleasant, in no acute distress. CV: S1, S2. CHEST: Equal expansion. Decreased breath sounds, in no acute distress. ABDOMEN: Soft. Nontender. No distension. HEENT: Moist. No pallor. NECK: No JVD. EXTREMITIES: Moves all. No obvious acute finding. The patient remains on non-rebreather and Vapotherm. MEDICATIONS: Medications list reviewed. From ID point of view, the patient is on: 1. Questran twice a day. 2. Vancomycin p.o. 3. Dexamethasone. 4. Remdesivir. 5. Lovenox. LABORATORY STUDIES: White count of 9.05, hemoglobin 12.2, and platelets 251. Sodium 135, potassium 4.1, and creatinine 0.63. Serology, Coronavirus PCR detected on 12/24. C diff negative on 12/25. Repeat C diff is pending. MICROBIOLOGY: Blood culture negative, 72 hours. IMAGING DATA: No new radiology studies available. ASSESSMENT AND PLAN: 1. COVID-19 present on admission. 2. Respiratory failure, improving slightly today. 3. Still with diarrhea. Clostridium difficile recheck is pending. She is on Questran pack b.i.d., we changed to Questran pack three times a day. 4. Debility. 5. Poor appetite, seems to be improving. I have discussed with the patient. She is eating better. Continue to monitor the patient clinically and follow with the labs. Discussed with Dr. Villafuerte in detail. Discussed with the nurse. Please refer to chart for more information. Overall, she seems to be improving slowly. Dictated by Carlito Fischer PA-C (Al) Zaher Shebib, MD /ORESTES /[id number]
[2019-12-30] MEDS: LOPERAMIDE HCL 2 MG CAP PO PRN ×2 (13:24→21:31)
[2019-12-30] MEDS: BENZONATATE 100 MG CAP PO PRN (13:24)
--- NOTE | 2019-12-30 15:33 | NUR ---
Nutrition Screen Note RD Recommendation for Physician: -Recommend regular diet -If PO intake <50% of meals, offer Ensure Enlive Plan of Care: RD following, monitoring for tolerance and adequacy Nutrition reason for involvement: Length of stay Primary Diagnose(s): pneumonia PMH: Hypothyroidism, depression, gastroesophageal reflux disease, and vitamin D deficiency Ht: 60 in Wt:168 lb BMI: 32.9 kg/m2 IBW:[address] Assessment: (12/30/19) Chart reviewed. Labs and meds reviewed. Pt is a 69 year old female admitted with pneumonia. Pt is COVID+. Unable to enter room due to droplet isolation precautions. It is noted that pt has diarrhea, but her appetite is improving per MD note. RN stated pt ate about 75% of her breakfast this morning. Attempted to call pt over the phone, but pt did not answer. Unable to obtain weight history from pt at this time. If PO intake is <50% of meals, offer Ensure Enlive. Will continue to monitor. Current Diet: cardiac Malnutrition Evaluation (12/30/19) Unable to assess. Will re-evaluate at follow-up as appropriate. Diet Education Needs Assessment: Diet education not indicated. Nutrition Care Level: low Signed: Ruthie Stanley, RD, LD
[2019-12-30] MEDS: REMDESIVIR 100MG/NS 100ML 100 MG in SODIUM CHLORIDE 0.9% 100 ML 100 ML IV SCH (16:22)
[2019-12-30] MEDS: GUAIFENESIN/CODEINE 10 ML CUP PO PRN (21:31)
[2019-12-31] VITALS (21 sets, daily range): BP systolic 71–122; BP diastolic 41–84
[2019-12-31] MEDS: NYSTATIN SUSPENSION 5 ML UDC PO SCH ×3 (06:28→20:44)
[2019-12-31] MEDS: LEVOTHYROXINE SODIUM 112 MCG TAB PO SCH (06:28)
[2019-12-31] MEDS: VANCOMYCIN 250MG/5ML ORAL SOLN PO SCH (06:28)
[2019-12-31] MEDS: DEXAMETHASONE PHOS 4MG/ML 5ML MULTIDOSE VIAL IV SCH (06:33)
[2019-12-31] MEDS ORDERED: DEXAMETHASONE SOD PHOS INJ 4 MG/ML VIAL ONE ×2 (06:37→06:38)
[2019-12-31] MEDS: INSULIN LISPRO 100 UNIT/1 ML 3ML VIAL SQ SCH ×4 (07:30→20:44)
[2019-12-31 08:14] LABS: BASOPHILS % 0.1 % (0.0-1.0); EOSINOPHILS # (AUTO) 0.1 (0.0-0.4); EOSINOPHILS % 0.5 % (0.0-6.0); HEMATOCRIT 40.1 % (34.2-44.1); HEMOGLOBIN 12.6 g/dL (12.0-16.0); LYMPHOCYTES # (AUTO) 0.6 (1.0-3.2); LYMPHOCYTES % 4.6 % (18.0-39.1); MEAN CORPUSCULAR HEMOGLOBIN 28.1 pg (28-32); MEAN CORPUSCULAR HGB CONC 31.4 g/dL (31-35); MEAN CORPUSCULAR VOLUME 89.3 fL (81-99); MONOCYTES # (AUTO) 0.5 (0.2-0.8); MONOCYTES % 3.9 % (4.4-11.3); NEUTROPHILS # (AUTO) 12.5 (2.1-6.9); NEUTROPHILS % 90.4 % (38.7-80.0); PLATELET COUNT 261 x10e3/uL (140-360); RED BLOOD COUNT 4.49 x10e6/uL (3.6-5.1); RED CELL DISTRIBUTION WIDTH 13.9 % (11.7-14.4)
[2019-12-31] MEDS: SERTRALINE HCL 50 MG TAB PO SCH (08:24)
[2019-12-31] MEDS: MAALOX/LIDOCAINE/BENADRYL/NYST 30 ML BTL PO SCH ×2 (08:24→18:41)
[2019-12-31] MEDS: ENOXAPARIN SOD INJ 40 MG/0.4 ML SYR SC SCH ×2 (08:24→20:43)
[2019-12-31] MEDS: ZINC SULFATE 220 MG CAP PO SCH (08:24)
[2019-12-31] MEDS: CHOLESTYRAMINE 4 GM PACKET PO SCH ×2 (08:24→18:41)
[2019-12-31] MEDS: ASCORBIC ACID 500 MG TAB PO SCH (08:24)
[2019-12-31] MEDS: FAMOTIDINE 20 MG/2 ML VIAL IV SCH ×2 (08:24→18:41)
[2019-12-31 08:26] LABS: ANION GAP 11.3 mmol/L (8-16); BLOOD UREA NITROGEN 20 mg/dL (7-26); BUN/CREATININE RATIO 29 (6-25); CALCIUM 8.8 mg/dL (8.4-10.2); CARBON DIOXIDE 24 mmol/L (22-29); CHLORIDE 105 mmol/L (98-107); EST GLOMERULAR FILTRATION RATE > 60 ML/MIN (60-); GLUCOSE 90 mg/dL (74-118); POTASSIUM 4.3 mmol/L (3.5-5.1); SODIUM 136 mmol/L (136-145)
--- NOTE | 2019-12-31 08:28 | Diagnostic Imaging Report ---
EXAMINATION: CHEST SINGLE (PORTABLE) INDICATION: Pneumonia COMPARISON: Multiple prior chest radiographs, most recently of 12/29/2019 FINDINGS: LINES/TUBES:EKG leads overlie the chest. LUNGS:The lungs are moderately inflated. Some interval improvement in left lung base opacities. PLEURA:No pleural effusion or pneumothorax. MEDIASTINUM:The cardiomediastinal silhouette appears unchanged in size and shape. BONES/SOFT TISSUES:No acute osseous injury. ABDOMEN:No free air under the diaphragm. Status post cholecystectomy. IMPRESSION: Improving left lung base opacity. Signed by: Radha Grubbs MD on 12/31/2019 8:25 AM
[2019-12-31 09:47] LABS: LYMPHOCYTES % (MANUAL) 3 % (19-48); MONOCYTES % (MANUAL) 4 % (3.4-9.0); NEUTROPHILS % (MANUAL) 93 % (40-74); PLATELET ESTIMATE ADEQUATE; PLATELET MORPHOLOGY COMMENT NORMAL; RBC MORPHOLOGY COMMENT NORMAL
[2019-12-31 09:48] LABS: PLATELET CLUMPS RARE
--- NOTE | 2019-12-31 13:14 | Progress Note ---
DATE: SUBJECTIVE: The patient is seen and evaluated. Discussed with the nurse. The patient remains on Vapotherm and non-rebreather. Alert and oriented. No acute distress. No new complaints. Diarrhea has improved. O2 saturation varies from 92% to 100%. PHYSICAL EXAMINATION: VITAL SIGNS: Temperature 98, pulse 66, respiration 20 to 32, and blood pressure 115/46. GENERAL: Alert and oriented. No acute distress. CV: S1 and S2. CHEST: Equal expansion. Decreased breath sounds. ABDOMEN: Soft and nontender. No distention. HEENT: Moist. No pallor. No JVD. EXTREMITIES: Moves all. MEDICATION: Zinc sulfate, vitamin C. The patient is on Questran b.i.d. and also receive Imodium. The patient is also on vancomycin p.o., status post remdesivir. Completed remdesivir. LABORATORY STUDIES: White count 13.81, hemoglobin 12.6, and platelet 261. Sodium 136, potassium 4.3, and creatinine 0.7. Serology; C. difficile negative x2. Coronavirus PCR detected on 12/24. MICROBIOLOGY: Blood culture negative final from 12/24. IMAGING: Chest x-ray from today showed improved left lung base opacity. ASSESSMENT AND PLAN: 1. COVID-19, present on admission. 2. Respiratory distress, improving. 3. Diarrhea, improved. Clostridium difficile negative x2. Questran has not been changed to t.i.d. and she is doing fine with twice a day. 4. Debility. 5. Shortness of breath, improving. 6. Please refer to chart for more information. Discussed with Dr. Villafuerte in details. Dictated by Carlito Fischer PA-C (Al) Laura Villafuerte MD /MODL /[id number]
[2019-12-31] MEDS: LOPERAMIDE HCL 2 MG CAP PO PRN (20:44)
[2020-01-01] VITALS (25 sets, daily range): BP systolic 92–122; BP diastolic 46–85
[2020-01-01] MEDS ORDERED: DEXAMETHASONE SOD PHOS INJ 4 MG/ML VIAL ONE (04:44)
[2020-01-01] MEDS: DEXAMETHASONE PHOS 4MG/ML 5ML MULTIDOSE VIAL IV SCH (05:42)
[2020-01-01] MEDS: NYSTATIN SUSPENSION 5 ML UDC PO SCH ×3 (05:42→21:12)
[2020-01-01] MEDS: LEVOTHYROXINE SODIUM 112 MCG TAB PO SCH (05:42)
[2020-01-01] MEDS: INSULIN LISPRO 100 UNIT/1 ML 3ML VIAL SQ SCH ×4 (07:30→21:12)
[2020-01-01] MEDS: MAALOX/LIDOCAINE/BENADRYL/NYST 30 ML BTL PO SCH ×2 (09:00→17:00)
[2020-01-01] MEDS: ZINC SULFATE 220 MG CAP PO SCH (09:01)
[2020-01-01] MEDS: FAMOTIDINE 20 MG/2 ML VIAL IV SCH ×2 (09:01→17:17)
[2020-01-01] MEDS: CHOLESTYRAMINE 4 GM PACKET PO SCH ×2 (09:01→17:17)
[2020-01-01] MEDS: ENOXAPARIN SOD INJ 40 MG/0.4 ML SYR SC SCH (09:01)
[2020-01-01] MEDS: ASCORBIC ACID 500 MG TAB PO SCH (09:01)
[2020-01-01] MEDS: SERTRALINE HCL 50 MG TAB PO SCH (09:01)
[2020-01-01 09:05] LABS: BASOPHILS % 0.2 % (0.0-1.0); EOSINOPHILS % 0.1 % (0.0-6.0); HEMATOCRIT 39.8 % (34.2-44.1); HEMOGLOBIN 12.6 g/dL (12.0-16.0); LYMPHOCYTES # (AUTO) 0.4 (1.0-3.2); LYMPHOCYTES % 3.2 % (18.0-39.1); MEAN CORPUSCULAR HEMOGLOBIN 27.8 pg (28-32); MEAN CORPUSCULAR HGB CONC 31.7 g/dL (31-35); MEAN CORPUSCULAR VOLUME 87.9 fL (81-99); MONOCYTES # (AUTO) 0.3 (0.2-0.8); MONOCYTES % 2.5 % (4.4-11.3); NEUTROPHILS # (AUTO) 12.4 (2.1-6.9); NEUTROPHILS % 93.2 % (38.7-80.0); PLATELET COUNT 259 x10e3/uL (140-360); RED BLOOD COUNT 4.53 x10e6/uL (3.6-5.1); RED CELL DISTRIBUTION WIDTH 14.1 % (11.7-14.4)
[2020-01-01 10:04] LABS: ALANINE AMINOTRANSFERASE 11 IU/L (0-55); ALBUMIN 2.3 g/dL (3.5-5.0); ALBUMIN/GLOBULIN RATIO 0.5 (0.8-2.0); ALKALINE PHOSPHATASE 115 IU/L (40-150); ANION GAP 12.1 mmol/L (8-16); BLOOD UREA NITROGEN 20 mg/dL (7-26); BUN/CREATININE RATIO 31 (6-25); CALCIUM 8.6 mg/dL (8.4-10.2); CARBON DIOXIDE 24 mmol/L (22-29); CHLORIDE 103 mmol/L (98-107); CREATININE, SERUM 0.64 mg/dL (0.57-1.11); EST GLOMERULAR FILTRATION RATE > 60 ML/MIN (60-); GLUCOSE 133 mg/dL (74-118); POTASSIUM 4.1 mmol/L (3.5-5.1); SODIUM 135 mmol/L (136-145)
[2020-01-01] MEDS: ACETAMINOPHEN 325 MG TAB PO PRN (18:00)
[2020-01-01] MEDS: LOPERAMIDE HCL 2 MG CAP PO PRN (21:12)
[2020-01-01] MEDS: GUAIFENESIN/CODEINE 10 ML CUP PO PRN (21:12)
[2020-01-02] VITALS (14 sets, daily range): BP systolic 97–134; BP diastolic 48–69
[2020-01-02] MEDS: NYSTATIN SUSPENSION 5 ML UDC PO SCH (05:45)
[2020-01-02] MEDS: LEVOTHYROXINE SODIUM 112 MCG TAB PO SCH (05:45)
[2020-01-02] MEDS: DEXAMETHASONE PHOS 4MG/ML 5ML MULTIDOSE VIAL IV SCH (05:45)
--- NOTE | 2020-01-02 06:58 | NUR ---
Patient able to tolerated prone position from 2330pm to 0700am.
[2020-01-02 07:10] LABS: ALANINE AMINOTRANSFERASE 10 IU/L (0-55); ALBUMIN 2.3 g/dL (3.5-5.0); ALBUMIN/GLOBULIN RATIO 0.6 (0.8-2.0); ALKALINE PHOSPHATASE 120 IU/L (40-150); ANION GAP 10.5 mmol/L (8-16); BLOOD UREA NITROGEN 19 mg/dL (7-26); BUN/CREATININE RATIO 28 (6-25); CALCIUM 8.8 mg/dL (8.4-10.2); CARBON DIOXIDE 26 mmol/L (22-29); CHLORIDE 105 mmol/L (98-107); CREATININE, SERUM 0.68 mg/dL (0.57-1.11); EST GLOMERULAR FILTRATION RATE > 60 ML/MIN (60-); GLUCOSE 81 mg/dL (74-118); POTASSIUM 4.5 mmol/L (3.5-5.1); SODIUM 137 mmol/L (136-145)
--- NOTE | 2020-01-02 07:13 | Diagnostic Imaging Report ---
EXAMINATION: CHEST SINGLE (PORTABLE) INDICATION: ^covid ^[id number] ^[id number] COMPARISON: 72,020 FINDINGS: AP view TUBES and LINES: None. LUNGS: Unchanged mild bibasilar airspace opacities. Unchanged prominent pulmonary vasculature. PLEURA: No pleural effusion or pneumothorax. HEART AND MEDIASTINUM: Stable cardiomegaly. BONES AND SOFT TISSUES: No acute osseous lesion. Soft tissues are unremarkable. UPPER ABDOMEN: No free air under the diaphragm. IMPRESSION: Stable exam. Unchanged mild cardio megaly with central pulmonary venous congestion. Unchanged subtle bibasilar opacities which may reflect known viral pneumonia. Signed by: Mich Buitrago MD on 01/02/2020 7:10 AM
[2020-01-02] MEDS: INSULIN LISPRO 100 UNIT/1 ML 3ML VIAL SQ SCH ×4 (07:30→20:35)
[2020-01-02] MEDS: FAMOTIDINE 20 MG/2 ML VIAL IV SCH ×2 (09:46→17:45)
[2020-01-02] MEDS: SERTRALINE HCL 50 MG TAB PO SCH (09:46)
[2020-01-02] MEDS: CHOLESTYRAMINE 4 GM PACKET PO SCH ×2 (09:46→17:00)
[2020-01-02] MEDS: ZINC SULFATE 220 MG CAP PO SCH (09:46)
[2020-01-02] MEDS: MAALOX/LIDOCAINE/BENADRYL/NYST 30 ML BTL PO SCH ×2 (09:46→17:45)
[2020-01-02] MEDS: ASCORBIC ACID 500 MG TAB PO SCH (17:46)
[2020-01-02] MEDS: GUAIFENESIN/CODEINE 10 ML CUP PO PRN (20:35)
[2020-01-02] MEDS: LOPERAMIDE HCL 2 MG CAP PO PRN (20:35)
[2020-01-02] MEDS: ENOXAPARIN SOD INJ 40 MG/0.4 ML SYR SC SCH (20:35)
[2020-01-03] VITALS (25 sets, daily range): BP systolic 101–149; BP diastolic 39–85
[2020-01-03] MEDS: LEVOTHYROXINE SODIUM 112 MCG TAB PO SCH (05:28)
--- NOTE | 2020-01-03 06:34 | NUR ---
Patient remain afebrile. A/O x 3. On Vapotherm 35L FiO2 85% with Non-rebreather 15L at the beginning of shift. Pt unable to maintain Oxygen saturation above 92%, desating to 80's. RT increased Vapotherm to 40L FiO2 100%, Maintaining O2 saturation between 88%-95%. Attempt to prone but patient did not tolerate, anxious and complaining feeling uncomfortable and choking. @ 0550 this morning 01/03/20 Patient proned with improvement in O2 saturation. Now maintaining saturation above 98%. Good wave form noted. Continues to have diarrhea, PRN Imodium given X 1. BM X 4 overnight, pericare and Rodriguez care done.
[2020-01-03] MEDS: INSULIN LISPRO 100 UNIT/1 ML 3ML VIAL SQ SCH ×4 (07:30→20:14)
[2020-01-03] MEDS: ENOXAPARIN SOD INJ 40 MG/0.4 ML SYR SC SCH ×2 (08:42→20:14)
[2020-01-03] MEDS: ZINC SULFATE 220 MG CAP PO SCH (08:42)
[2020-01-03] MEDS: ASCORBIC ACID 500 MG TAB PO SCH ×2 (08:42→16:18)
[2020-01-03] MEDS: SERTRALINE HCL 50 MG TAB PO SCH (08:42)
[2020-01-03] MEDS: FAMOTIDINE 20 MG/2 ML VIAL IV SCH ×2 (08:42→16:18)
[2020-01-03] MEDS: CHOLESTYRAMINE 4 GM PACKET PO SCH (08:42)
[2020-01-03] MEDS: LOPERAMIDE HCL 2 MG CAP PO PRN ×3 (08:42→15:16)
[2020-01-03 09:48] LABS: BASOPHILS % 0.1 % (0.0-1.0); EOSINOPHILS # (AUTO) 0.2 (0.0-0.4); EOSINOPHILS % 1.4 % (0.0-6.0); HEMATOCRIT 40.5 % (34.2-44.1); HEMOGLOBIN 12.9 g/dL (12.0-16.0); LYMPHOCYTES # (AUTO) 0.6 (1.0-3.2); LYMPHOCYTES % 3.9 % (18.0-39.1); MEAN CORPUSCULAR HEMOGLOBIN 27.6 pg (28-32); MEAN CORPUSCULAR HGB CONC 31.9 g/dL (31-35); MEAN CORPUSCULAR VOLUME 86.7 fL (81-99); MONOCYTES # (AUTO) 0.5 (0.2-0.8); MONOCYTES % 3.2 % (4.4-11.3); NEUTROPHILS # (AUTO) 13.4 (2.1-6.9); NEUTROPHILS % 90.5 % (38.7-80.0); PLATELET COUNT 264 x10e3/uL (140-360); RED BLOOD COUNT 4.67 x10e6/uL (3.6-5.1); RED CELL DISTRIBUTION WIDTH 14.5 % (11.7-14.4)
[2020-01-03 10:04] LABS: ANION GAP 12.1 mmol/L (8-16); BLOOD UREA NITROGEN 19 mg/dL (7-26); BUN/CREATININE RATIO 31 (6-25); CALCIUM 8.8 mg/dL (8.4-10.2); CARBON DIOXIDE 26 mmol/L (22-29); CHLORIDE 103 mmol/L (98-107); CREATININE, SERUM 0.62 mg/dL (0.57-1.11); EST GLOMERULAR FILTRATION RATE > 60 ML/MIN (60-); GLUCOSE 87 mg/dL (74-118); POTASSIUM 4.1 mmol/L (3.5-5.1); SODIUM 137 mmol/L (136-145)
[2020-01-03 10:16] LABS: MAGNESIUM 1.9 MG/DL (1.3-2.1); PHOSPHORUS 3.3 MG/DL (2.3-4.7)
[2020-01-03 10:18] LABS: ALBUMIN 2.1 g/dL (3.5-5.0); BILIRUBIN,DIRECT 0.4 mg/dL (0.0-0.5)
[2020-01-03] MEDS: MAALOX/LIDOCAINE/BENADRYL/NYST 30 ML BTL PO SCH ×2 (10:35→16:18)
[2020-01-03] MEDS: BENZONATATE 100 MG CAP PO PRN (12:42)
[2020-01-03] MEDS: GUAIFENESIN/CODEINE 10 ML CUP PO PRN ×2 (12:42→20:15)
[2020-01-03] MEDS: ACETAMINOPHEN 325 MG TAB PO PRN (16:51)
[2020-01-04] VITALS (24 sets, daily range): BP systolic 90–196; BP diastolic 39–121
[2020-01-04 03:36] LABS: BASOPHILS % 0.1 % (0.0-1.0); EOSINOPHILS # (AUTO) 0.2 (0.0-0.4); EOSINOPHILS % 1.3 % (0.0-6.0); HEMATOCRIT 38.9 % (34.2-44.1); HEMOGLOBIN 12.6 g/dL (12.0-16.0); LYMPHOCYTES # (AUTO) 0.6 (1.0-3.2); LYMPHOCYTES % 3.5 % (18.0-39.1); MEAN CORPUSCULAR HEMOGLOBIN 27.9 pg (28-32); MEAN CORPUSCULAR HGB CONC 32.4 g/dL (31-35); MEAN CORPUSCULAR VOLUME 86.1 fL (81-99); MONOCYTES # (AUTO) 0.3 (0.2-0.8); MONOCYTES % 2.1 % (4.4-11.3); NEUTROPHILS # (AUTO) 14.3 (2.1-6.9); NEUTROPHILS % 92.2 % (38.7-80.0); PLATELET COUNT 243 x10e3/uL (140-360); RED BLOOD COUNT 4.52 x10e6/uL (3.6-5.1); RED CELL DISTRIBUTION WIDTH 14.6 % (11.7-14.4)
[2020-01-04 03:49] LABS: ANION GAP 14.2 mmol/L (8-16); BLOOD UREA NITROGEN 14 mg/dL (7-26); BUN/CREATININE RATIO 22 (6-25); CALCIUM 8.7 mg/dL (8.4-10.2); CARBON DIOXIDE 24 mmol/L (22-29); CHLORIDE 100 mmol/L (98-107); CREATININE, SERUM 0.64 mg/dL (0.57-1.11); EST GLOMERULAR FILTRATION RATE > 60 ML/MIN (60-); GLUCOSE 95 mg/dL (74-118); POTASSIUM 4.2 mmol/L (3.5-5.1); SODIUM 134 mmol/L (136-145)
[2020-01-04] MEDS: LEVOTHYROXINE SODIUM 112 MCG TAB PO SCH (05:30)
--- NOTE | 2020-01-04 06:02 | NUR ---
Patient urine is noted to be dark red this morning(01/04/20) from the Rodriguez catheter. Patient on Lovenox 40mg BID. Platelet within normal limits. CBC and BMP drawn and sent. CBC resulted. WBC trending up @ 15.51 this morning and Neutrophil elevated to 14.3. Patient not currently on antibiotics. last dose of dexamethasone was 48 hours ago. Patient continues to have increase work of breath with movement. On Vapotherm 40L and Non-rebreather 15L with FiO2 100% but still desaturates with activity in bed. Primary provider to follow up this morning
--- NOTE | 2020-01-04 06:38 | Diagnostic Imaging Report ---
EXAMINATION: CHEST SINGLE (PORTABLE) INDICATION: ^covid COMPARISON: 01/02/2020 FINDINGS: AP view TUBES and LINES: None. LUNGS: Interval increase in diffuse pulmonary airspace disease. PLEURA: No pleural effusion or pneumothorax. HEART AND MEDIASTINUM: The cardiomediastinal silhouette is unchanged. BONES AND SOFT TISSUES: No acute osseous lesion. Soft tissues are unremarkable. UPPER ABDOMEN: No free air under the diaphragm. IMPRESSION: Interval increase in diffuse pulmonary airspace disease consistent with known viral pneumonia and possible developing ARDS. Signed by: Mich Buitrago MD on 01/04/2020 6:35 AM
[2020-01-04] MEDS: INSULIN LISPRO 100 UNIT/1 ML 3ML VIAL SQ SCH ×4 (07:30→20:22)
[2020-01-04] MEDS: ASCORBIC ACID 500 MG TAB PO SCH ×2 (09:00→15:11)
[2020-01-04] MEDS: MAALOX/LIDOCAINE/BENADRYL/NYST 30 ML BTL PO SCH ×2 (09:00→15:12)
[2020-01-04] MEDS: SERTRALINE HCL 50 MG TAB PO SCH (09:10)
[2020-01-04] MEDS: ENOXAPARIN SOD INJ 40 MG/0.4 ML SYR SC SCH ×2 (09:10→20:20)
[2020-01-04] MEDS: FAMOTIDINE 20 MG/2 ML VIAL IV SCH ×2 (09:10→15:11)
[2020-01-04] MEDS: ZINC SULFATE 220 MG CAP PO SCH (09:10)
[2020-01-04] MEDS ORDERED: FUROSEMIDE INJ 10 MG/ML 4 ML VIAL IV ONE (09:30)
[2020-01-04] MEDS ORDERED: SODIUM CHLORIDE 0.9% 1000ML 1,000 ML IV ONE (09:30)
[2020-01-04] MEDS: BENZONATATE 100 MG CAP PO PRN ×2 (09:45→15:11)
[2020-01-04] MEDS: ACETAMINOPHEN 325 MG TAB PO PRN (09:45)
[2020-01-04] MEDS: GUAIFENESIN/CODEINE 10 ML CUP PO PRN ×3 (09:45→20:21)
--- NOTE | 2020-01-04 10:09 | NUR ---
Patient's oxygen saturation is 85-91% this morning. Persistent tachypnea (40s). Increased work of breathing compared to yesterday. Discussed with Dr. Alvarez and Dr. Castle. 40 mg of IV lasix given and patient proned at 09:45. After proning, decreased in RR is observed (20s now and O2Sats in mid 90s.
--- NOTE | 2020-01-04 12:49 | NUR ---
Nutrition Screen Note RD Recommendation for Physician: - Recommend Regular diet Plan of Care: RD following, monitoring for tolerance and adequacy Nutrition reason for involvement: Consult "buttermilk or yogurt TID" Primary Diagnose(s): pneumonia PMH: Hypothyroidism, depression, gastroesophageal reflux disease, and vitamin D deficiency Ht: 60 in Wt:168 lb BMI: 32.9 kg/m2 IBW:[address] Assessment: 01/03: Pt re-evaluated per MD consult for "buttermilk or yogurt TID". Chart reviewed. Pt requiring intermittent proning 2/2 respiratory status. Per chart po intake improved, 100% of meals over weekend. Pt with diarrhea, 1-3 BM daily and on questran. Labs and meds reviewed. RD to order yogurt TID with meals per MD request. Will continue to monitor. (12/30/19) Chart reviewed. Labs and meds reviewed. Pt is a 69 year old female admitted with pneumonia. Pt is COVID+. Unable to enter room due to droplet isolation precautions. It is noted that pt has diarrhea, but her appetite is improving per MD note. RN stated pt ate about 75% of her breakfast this morning. Attempted to call pt over the phone, but pt did not answer. Unable to obtain weight history from pt at this time. If PO intake is <50% of meals, offer Ensure Enlive. Will continue to monitor. Current Diet: cardiac Malnutrition Evaluation (12/30/19) Unable to assess. Will re-evaluate at follow-up as appropriate. Diet Education Needs Assessment: Diet education not indicated. Nutrition Care Level: low Signed: Shawna Rodriguez RD, LD, [facility]
[2020-01-04] MEDS ORDERED: PROPOFOL IV EMULSION 10MG/ML 100 ML ONE (21:06)
[2020-01-04] MEDS ORDERED: MIDAZOLAM HCL 5MG/ML 10ML VIAL 100 ML IV ONE (21:26)
[2020-01-04] MEDS: PROPOFOL IV EMULSION 10MG/ML 100 ML IV PRN ×2 (21:30→22:30)
[2020-01-04] MEDS ORDERED: FENTANYL 2000MCG/NS 250 250 ML ONE (21:50)
--- NOTE | 2020-01-04 21:50 | Diagnostic Imaging Report ---
EXAMINATION: CHEST SINGLE (PORTABLE) INDICATION: Intubated, verify tube position COMPARISON: 01/04/2020 FINDINGS: TUBES and LINES: ET tube tip 1.7 cm above gerardo. LUNGS: Large lung volumes with diffuse pulmonary haziness. PLEURA: No pleural effusion or pneumothorax. HEART AND MEDIASTINUM: The cardiomediastinal silhouette is unremarkable. BONES AND SOFT TISSUES: No acute osseous lesion. Soft tissues are unremarkable. UPPER ABDOMEN: No free air under the diaphragm. Cholecystectomy clips. IMPRESSION: ET tube tip 1.7 cm above gerardo. Extensive airspace disease. Signed by: Ramin Kaiser DO on 01/04/2020 9:47 PM
[2020-01-04] MEDS: MIDAZOLAM HCL 50 MG in SODIUM CHLORIDE 0.9% 100 ML 90 ML IV PRN ×2 (22:00→22:30)
[2020-01-04] MEDS: FENTANYL CITRATE INJ 2,000 MCG in SODIUM CHLORIDE 0.9% 250ML 210 ML IV PRN ×3 (22:15→23:30)
[2020-01-04 22:26] LABS: ABG PCO2 52 mmHg (35-45)
[2020-01-04 22:27] LABS: ABG HCO3 23 mmol/L (22-26); ABG PO2 30 mmHg (80-105)
[2020-01-04] MEDS: ROCURONIUM BROMIDE 250 MG in SODIUM CHLORIDE 0.9% 250ML 225 ML IV PRN (23:00)
[2020-01-05] VITALS (17 sets, daily range): BP systolic 90–116; BP diastolic 42–54
[2020-01-05] MEDS: MIDAZOLAM HCL 50 MG in SODIUM CHLORIDE 0.9% 100 ML 90 ML IV PRN ×2
[2020-01-05 00:15] LABS: ABG HCO3 24 mmol/L (22-26); ABG PCO2 49 mmHg (35-45); ABG PH 7.28 (7.35-7.45); ABG PO2 111 mmHg (80-105)
[2020-01-05] MEDS ORDERED: MIDAZOLAM HCL 5MG/ML 10ML VIAL 100 ML IV ONE (03:16)
[2020-01-05] MEDS: LEVOTHYROXINE SODIUM 112 MCG TAB PO SCH (05:32)
[2020-01-05] MEDS: INSULIN LISPRO 100 UNIT/1 ML 3ML VIAL SQ SCH ×4 (07:30→21:00)
--- NOTE | 2020-01-05 07:56 | NUR ---
Patient intubated @ 2044 last night 01/04/2020 due to not being able to maintain oxygen saturation above 80% on Non-rebreather 15L and Vapotherm 40L FiO2 100%. Sedation with Fentanyl and Versed. Rocuronium added.
[2020-01-05] MEDS: FENTANYL CITRATE INJ 2,000 MCG in SODIUM CHLORIDE 0.9% 250ML 210 ML IV PRN ×5 (08:37→08:43)
[2020-01-05] MEDS ORDERED: DEXTROSE 5%/0.9% SOD CHL 1,000 ML IV ONE (08:45)
[2020-01-05] MEDS: ZINC SULFATE 220 MG CAP PO SCH (09:00)
[2020-01-05] MEDS: FENTANYL 2000MCG/NS 250 250 ML IV PRN ×2 (09:15→17:21)
[2020-01-05] MEDS: PANTOPRAZOLE 40 MG 10ML VIAL IV SCH (09:17)
[2020-01-05] MEDS: ENOXAPARIN SOD INJ 40 MG/0.4 ML SYR SC SCH ×2 (09:18→22:05)
--- NOTE | 2020-01-05 09:32 | Diagnostic Imaging Report ---
EXAMINATION: CHEST SINGLE (PORTABLE), ABDOMEN-1VIEW (KUB) INDICATION: Enteric tube placement, pneumonia COMPARISON: Chest radiograph 01/04/2020 FINDINGS: LINES/TUBES:Enteric tube terminates in the distal stomach. Endotracheal tube terminates approximately 3.5 cm above the gerardo. EKG leads overlie the chest. LUNGS:Persistent bilateral hazy opacities. PLEURA:No pleural effusion or pneumothorax. MEDIASTINUM:The cardiomediastinal silhouette appears unchanged in size and shape. BONES/SOFT TISSUES:No acute osseous injury. ABDOMEN:No free air under the diaphragm. Nonobstructive bowel gas pattern. No free air. Phleboliths in the pelvis. IMPRESSION: Enteric tube terminates in the distal stomach. Persistent bilateral hazy airspace opacities. Signed by: Radha Grubbs MD on 01/05/2020 9:28 AM
[2020-01-05 09:36] LABS: ABG HCO3 24 mmol/L (22-26); ABG PCO2 44 mmHg (35-45); ABG PH 7.35 (7.35-7.45); ABG PO2 175 mmHg (80-105)
[2020-01-05 10:07] LABS: BASOPHILS % 0.1 % (0.0-1.0); EOSINOPHILS # (AUTO) 0.6 (0.0-0.4); EOSINOPHILS % 3.6 % (0.0-6.0); HEMATOCRIT 37.2 % (34.2-44.1); HEMOGLOBIN 11.6 g/dL (12.0-16.0); LYMPHOCYTES # (AUTO) 0.4 (1.0-3.2); LYMPHOCYTES % 2.3 % (18.0-39.1); MEAN CORPUSCULAR HEMOGLOBIN 27.8 pg (28-32); MEAN CORPUSCULAR HGB CONC 31.2 g/dL (31-35); MEAN CORPUSCULAR VOLUME 89.2 fL (81-99); MONOCYTES # (AUTO) 0.3 (0.2-0.8); MONOCYTES % 1.7 % (4.4-11.3); NEUTROPHILS # (AUTO) 14.5 (2.1-6.9); NEUTROPHILS % 91.5 % (38.7-80.0); PLATELET COUNT 214 x10e3/uL (140-360); RED BLOOD COUNT 4.17 x10e6/uL (3.6-5.1); RED CELL DISTRIBUTION WIDTH 15.2 % (11.7-14.4)
--- NOTE | 2020-01-05 10:20 | Diagnostic Imaging Report ---
EXAMINATION: CHEST XRAY LINE PLACEMENT INDICATION: Line placement COMPARISON: Chest radiograph of earlier the same day FINDINGS: LINES/TUBES:Interval placement of right PICC line which terminates in the superior vena cava. Remaining support lines and tubes unchanged. LUNGS:Unchanged diffuse bilateral hazy opacities. PLEURA:No pleural effusion or pneumothorax. MEDIASTINUM:The cardiomediastinal silhouette appears unchanged in size and shape. BONES/SOFT TISSUES:No acute osseous injury. ABDOMEN:No free air under the diaphragm. IMPRESSION: New right PICC line terminates in the SVC. Otherwise, no significant interval change. Signed by: Radha Grubbs MD on 01/05/2020 10:16 AM
[2020-01-05 10:24] LABS: BLOOD UREA NITROGEN 19 mg/dL (7-26); BUN/CREATININE RATIO 27 (6-25); CALCIUM 8.5 mg/dL (8.4-10.2); CARBON DIOXIDE 24 mmol/L (22-29); CHLORIDE 104 mmol/L (98-107); EST GLOMERULAR FILTRATION RATE > 60 ML/MIN (60-); GLUCOSE 68 mg/dL (74-118); SODIUM 135 mmol/L (136-145)
[2020-01-05 10:47] LABS: BAND NEUTROPHILS % (MANUAL) 4 %; LYMPHOCYTES % (MANUAL) 2 % (19-48); MONOCYTES % (MANUAL) 1 % (3.4-9.0); NEUTROPHILS % (MANUAL) 93 % (40-74)
--- NOTE | 2020-01-05 16:10 | Diagnostic Imaging Report ---
Bilateral chest ultrasound History: Pneumonia Technique/findings: Limited bilateral chest ultrasound was performed to evaluate for pleural effusion. This demonstrated no pleural effusion on the right or left. IMPRESSION: No pleural effusion. Signed by: Radha Grubbs MD on 01/05/2020 4:07 PM
[2020-01-05] MEDS ORDERED: SODIUM CHLORIDE 0.9% 1000ML 2,000 ML ONE (16:18)
[2020-01-05] MEDS ORDERED: NOREPINEPHRINE 8 MG/D5W 250 ML 250 ML ONE (16:22)
--- NOTE | 2020-01-05 16:32 | NUR ---
PAtient proned at 1615. Experienced significant BP drop. 500 NS bolus given, low dose Norepi started.
[2020-01-05] MEDS: NOREPINEPHRINE 8 MG/D5W 250 ML 250 ML IV SCH (16:58)
[2020-01-05] MEDS ORDERED: SODIUM CHLORIDE 0.9% 1000ML 500 ML IV SCH (17:15)
[2020-01-05] MEDS: MIDAZOLAM HCL 5MG/ML 10ML VIAL 100 ML IV PRN (17:21)
[2020-01-06] VITALS (23 sets, daily range): BP systolic 93–133; BP diastolic 40–71
[2020-01-06] MEDS: FENTANYL 2000MCG/NS 250 250 ML IV PRN ×2 (04:12→18:00)
[2020-01-06] MEDS: NOREPINEPHRINE 8 MG/D5W 250 ML 250 ML IV SCH ×2 (04:13→20:41)
[2020-01-06] MEDS: LEVOTHYROXINE SODIUM 112 MCG TAB PO SCH (06:13)
[2020-01-06] MEDS: INSULIN LISPRO 100 UNIT/1 ML 3ML VIAL SQ SCH ×4 (07:30→22:51)
[2020-01-06] MEDS: ENOXAPARIN SOD INJ 40 MG/0.4 ML SYR SC SCH ×2 (08:45→21:46)
[2020-01-06 09:26] LABS: ALBUMIN 1.3 g/dL (3.5-5.0); ALBUMIN/GLOBULIN RATIO 0.3 (0.8-2.0); ANION GAP 8.2 mmol/L (8-16); CALCIUM 8.3 mg/dL (8.4-10.2); CREATININE, SERUM 0.94 mg/dL (0.57-1.11); POTASSIUM 4.2 mmol/L (3.5-5.1)
[2020-01-06] MEDS: PANTOPRAZOLE 40 MG 10ML VIAL IV SCH (10:46)
[2020-01-06] MEDS: ZINC SULFATE 220 MG CAP PO SCH (10:46)
[2020-01-06] MEDS ORDERED: ACETAMINOPHEN 1000 MG/100 ML IV PRN (13:30)
[2020-01-06] MEDS: MEROPENEM 500MG/ NS 50ML 50 ML IV SCH ×2 (14:00→21:46)
[2020-01-06] MEDS: DEXTROSE 5%/0.9% SOD CHL 1,000 ML IV SCH (14:23)
[2020-01-06] MEDS ORDERED: ETOMIDATE 2 MG/ML 10 ML INJ IV ONE (14:48)
[2020-01-06] MEDS ORDERED: SUCCINYLCHOLINE CHLORIDE 20 MG/ML 10ML VIAL ONE (14:48)
[2020-01-06] MEDS: VANCOMYCIN 1GM/NS 250 ML 250 ML IV SCH (15:13)
--- NOTE | 2020-01-06 15:19 | NUR ---
Nutrition Intervention Note RD Recommendation(s) for Physician: - Recommend changing TF to Vital AF at 10 ml/hr, when hemodynamically stable, advance as tolerated to goal rate of 45 ml/hr (to provide 1296 kcal and 81 gm protein). - Water flushes and fluid management per MD. Plan of Care: RD following, TF rec's, monitor adequacy and tolerance Nutrition reason for involvement: follow up, new intubation and TF RD Assessment: 01/05: Follow up. Pt re-evaluated per intubation status. Pt currently intubated, sedated, and paralyzed. Pt requiring high dose pressor support of Levophed a t20 mcg/min. TF of Vital HP infusing at 10 ml/hr per RN. TF discussed with RN on unit, TF rec's provided pending hemodynamic stability. Chart reviewed. Will continue to monitor. 01/03: Pt re-evaluated per MD consult for "buttermilk or yogurt TID". Chart reviewed. Pt requiring intermittent proning 2/2 respiratory status. Per chart po intake improved, 100% of meals over weekend. Pt with diarrhea, 1-3 BM daily and on questran. Labs and meds reviewed. RD to order yogurt TID with meals per MD request. Will continue to monitor. (12/30/19) Chart reviewed. Labs and meds reviewed. Pt is a 69 year old female admitted with pneumonia. Pt is COVID+. Unable to enter room due to droplet isolation precautions. It is noted that pt has diarrhea, but her appetite is improving per MD note. RN stated pt ate about 75% of her breakfast this morning. Attempted to call pt over the phone, but pt did not answer. Unable to obtain weight history from pt at this time. If PO intake is <50% of meals, offer Ensure Enlive. Will continue to monitor. Primary Diagnose(s): pneumonia PMH: Hypothyroidism, depression, gastroesophageal reflux disease, and vitamin D deficiency GI: LBM 01/01 x 2 (last documented BM) Skin: buttock wound-no staging Labs: 01/05: Na 131, K 4.2, BUN 28, Cr 0.94, Gluc 272 Meds: protonix, zofran, zinc sulfate, synthroid, humalog IVF/Drips: Levophed at 20 mcg/min, Fentanyl drip, Rocuronium drip Ht: 60 in Wt:168 lb BMI: 32.9 kg/m2 IBW:100 lb Malnutrition Evaluation (01/06/20) The patient does not meet criteria for a specified degree of malnutrition at this time. Will re-evaluate at follow-up as appropriate. Unable to assess 2/2 current isolation protocol. Nutrition Prescription (Diet Order): Vital HP at 30 ml/hr, infusing at 10 ml/hr (240 kcal and 21 gm protein). Estimated Nutritional Needs: 0780-7604 calories/day (22-25 kcal/kg IBW) 68-91 g protein/day (1.5-2 g pro/kg IBW) Diet Adequacy: Not meeting calorie needs, Not meeting protein needs Diet Tolerance: tolerating trickle feeds Diet Education Needs Assessment: Diet education not indicated, patient intubated. Nutrition Care Level: moderate Nutrition Diagnosis: PES Goal: Patient will meet 75-100% of estimated needs by follow up Progress: N/A Interventions: -Composition, Rate, Route, IVF, Prescription medications, Recommended Modifications, Collaboration with other providers Monitoring/Evaluation: -Total energy intake, Total protein intake, Formula/Solution, Prescription medication, Weight change Signed: Shawna Rodriguez RD, LD, [facility]
[2020-01-06] MEDS: MIDAZOLAM HCL 5MG/ML 10ML VIAL 100 ML IV PRN (18:01)
--- NOTE | 2020-01-06 19:38 | Progress Note ---
DATE: SUBJECTIVE: Ms. Gordon remains in Intensive Care Unit, intubated. Apparently, she is clinically worse today OBJECTIVE: VITAL SIGNS: She is having fever, 100.0; respiration rate 31, and blood pressure 109/52. HEENT: Normocephalic. NECK: Supple. CHEST: Few crackles. LABORATORY DATA: The patient who is a white count is 15.87, hemoglobin of 11. Sodium 131, potassium 4.2. Creatinine 0.94. MEDICATION LIST: She is currently on insulin, Protonix, Zinc, Lovenox, acetaminophen, chloride. IMPRESSION: Fever, concerned about superimposed bacterial pneumonia, the patient is on a ventilator, healthcare associated. We will put her on meropenem and vancomycin. Obtain sputum cultures. Continue other care. We will follow. Status post COVID-19, respiratory failure. MD SUSY Lovett/MODL /[id number]
[2020-01-06 23:46] LABS: ABG HCO3 23 mmol/L (22-26); ABG PCO2 76 mmHg (35-45); ABG PH 7.08 (7.35-7.45); ABG PO2 74 mmHg (80-105)
[2020-01-07] VITALS (25 sets, daily range): BP systolic 80–115; BP diastolic 37–57
[2020-01-07] MEDS: DEXTROSE 5%/0.9% SOD CHL 1,000 ML IV SCH (01:20)
[2020-01-07] MEDS: MIDAZOLAM HCL 5MG/ML 10ML VIAL 100 ML IV PRN ×2 (01:21→22:14)
[2020-01-07] MEDS: ROCURONIUM BROMIDE 250 MG in SODIUM CHLORIDE 0.9% 250ML 225 ML IV PRN ×2 (02:21→21:21)
[2020-01-07] MEDS: FENTANYL 2000MCG/NS 250 250 ML IV PRN (02:22)
[2020-01-07] MEDS: VANCOMYCIN 1GM/NS 250 ML 250 ML IV SCH ×3 (02:23→15:43)
[2020-01-07 05:06] LABS: BASOPHILS % 0.1 % (0.0-1.0); EOSINOPHILS # (AUTO) 0.2 (0.0-0.4); EOSINOPHILS % 1.2 % (0.0-6.0); HEMATOCRIT 29.2 % (34.2-44.1); HEMOGLOBIN 8.4 g/dL (12.0-16.0); LYMPHOCYTES # (AUTO) 0.2 (1.0-3.2); LYMPHOCYTES % 1.6 % (18.0-39.1); MEAN CORPUSCULAR HEMOGLOBIN 28.1 pg (28-32); MEAN CORPUSCULAR HGB CONC 28.8 g/dL (31-35); MEAN CORPUSCULAR VOLUME 97.7 fL (81-99); MONOCYTES # (AUTO) 0.4 (0.2-0.8); MONOCYTES % 2.4 % (4.4-11.3); NEUTROPHILS # (AUTO) 14.1 (2.1-6.9); NEUTROPHILS % 93.8 % (38.7-80.0); PLATELET COUNT 175 x10e3/uL (140-360); RED BLOOD COUNT 2.99 x10e6/uL (3.6-5.1); RED CELL DISTRIBUTION WIDTH 15.7 % (11.7-14.4)
[2020-01-07 05:27] LABS: ANION GAP 10.2 mmol/L (8-16); BLOOD UREA NITROGEN 27 mg/dL (7-26); BUN/CREATININE RATIO 33 (6-25); CARBON DIOXIDE 16 mmol/L (22-29); CHLORIDE 108 mmol/L (98-107); CREATININE, SERUM 0.81 mg/dL (0.57-1.11); EST GLOMERULAR FILTRATION RATE > 60 ML/MIN (60-); GLUCOSE 367 mg/dL (74-118); POTASSIUM 3.2 mmol/L (3.5-5.1); SODIUM 131 mmol/L (136-145)
[2020-01-07] MEDS: MEROPENEM 500MG/ NS 50ML 50 ML IV SCH ×3 (06:00→21:01)
[2020-01-07] MEDS: LEVOTHYROXINE SODIUM 112 MCG TAB PO SCH (06:00)
[2020-01-07] MEDS: INSULIN LISPRO 100 UNIT/1 ML 3ML VIAL SQ SCH ×4 (07:30→18:30)
--- NOTE | 2020-01-07 08:37 | Diagnostic Imaging Report ---
Examination: Single AP view of the chest. COMPARISON: 01/05/2020 INDICATION: Viral pneumonia DISCUSSION: Endotracheal tube, Dobbhoff tube, and right upper extremity PICC are unchanged in position. The lungs remain well-inflated with no significant interval change in confluent bilateral hazy alveolar opacities. No pleural effusion or pneumothorax area Cardiomediastinal contour is stable. No acute osseous abnormalities. IMPRESSION: Stable position of support lines and tubes. Unchanged confluent bilateral airspace opacities in keeping with provided history of viral pneumonia. Signed by: Dr. Jed Isaac M.D. on 01/07/2020 8:33 AM
[2020-01-07] MEDS: POTASSIUM CHLORIDE 20MEQ/100ML 100 ML IV PRN (09:00)
[2020-01-07] MEDS ORDERED: FUROSEMIDE INJ 10 MG/ML 2 ML VIAL IV ONE (09:00)
[2020-01-07 09:37] LABS: ABG HCO3 21 mmol/L (22-26); ABG PCO2 56 mmHg (35-45); ABG PH 7.18 (7.35-7.45); ABG PO2 87 mmHg (80-105)
[2020-01-07] MEDS ORDERED: KCL 20MEQ/.9 SOD CHL 1,000 ML IV SCH (09:45)
[2020-01-07] MEDS: ZINC SULFATE 220 MG CAP PO SCH (10:09)
[2020-01-07] MEDS: PANTOPRAZOLE 40 MG 10ML VIAL IV SCH (10:09)
[2020-01-07] MEDS ORDERED: SODIUM BICARBONATE 8.4% INJ 50 ML SYR IV STA (10:13)
[2020-01-07] MEDS: CITRIC ACID/SODIUM CITRATE 30 ML UDC PO SCH ×2 (10:13→17:50)
[2020-01-07] MEDS: ENOXAPARIN SOD INJ 40 MG/0.4 ML SYR SC SCH ×2 (10:14→20:58)
--- NOTE | 2020-01-07 10:14 | NUR ---
ABG RESULTS SHOWN TO DR. SHARMA. ORDER FOR 1AMP BICARB
[2020-01-07 10:58] LABS: BAND NEUTROPHILS % (MANUAL) 3 %; EOSINOPHILS % (MANUAL) 1 % (0-7); HYPOCHROMASIA MODERATE; LYMPHOCYTES % (MANUAL) 2 % (19-48); MONOCYTES % (MANUAL) 2 % (3.4-9.0); NEUTROPHILS % (MANUAL) 92 % (40-74); RBC MORPHOLOGY COMMENT ABNORMAL
--- NOTE | 2020-01-07 16:26 | Progress Note ---
DATE: SUBJECTIVE: Ms. Gordon remains in intensive care unit. PHYSICAL EXAMINATION: VITAL SIGNS: Temperature 98.1, T-max 100. HEENT: Normocephalic. NECK: Supple. CHEST: Few crackles. COR: S1 and S2. No S3, S4, or murmurs. ABDOMEN: Soft. EXTREMITIES: No edema. LABORATORY DATA: White count is 15.0 and hemoglobin 8.4. Sodium 131, potassium 3.2, and creatinine 0.8. The patient remains on the ventilator. IMPRESSION: COVID-19, concern about aspiration pneumonia. The patient is currently on meropenem, day #2 out of 7, Lovenox, vancomycin day #2 out of 7. Continue ventilator supportive care. We will follow. MD SUSY Lovett/MODL /[id number]
[2020-01-08] VITALS (19 sets, daily range): BP systolic 101–125; BP diastolic 48–66
[2020-01-08] MEDS: FENTANYL 2000MCG/NS 250 250 ML IV PRN ×5 (01:33→21:33)
[2020-01-08] MEDS: VANCOMYCIN 1GM/NS 250 ML 250 ML IV SCH ×2 (03:20→14:37)
[2020-01-08] MEDS: NOREPINEPHRINE 8 MG/D5W 250 ML 250 ML IV SCH ×2 (04:53→14:41)
[2020-01-08] MEDS: ROCURONIUM BROMIDE 250 MG in SODIUM CHLORIDE 0.9% 250ML 225 ML IV PRN ×3 (04:53→23:01)
[2020-01-08] MEDS: MIDAZOLAM HCL 5MG/ML 10ML VIAL 100 ML IV PRN ×3 (04:54→17:20)
[2020-01-08] MEDS: INSULIN LISPRO 100 UNIT/1 ML 3ML VIAL SQ SCH ×4 (06:00→17:15)
[2020-01-08 06:05] LABS: BASOPHILS % 0.2 % (0.0-1.0); EOSINOPHILS # (AUTO) 0.2 (0.0-0.4); EOSINOPHILS % 1.5 % (0.0-6.0); HEMATOCRIT 33.8 % (34.2-44.1); LYMPHOCYTES # (AUTO) 0.3 (1.0-3.2); LYMPHOCYTES % 1.9 % (18.0-39.1); MEAN CORPUSCULAR HEMOGLOBIN 28.1 pg (28-32); MEAN CORPUSCULAR HGB CONC 29.6 g/dL (31-35); MEAN CORPUSCULAR VOLUME 94.9 fL (81-99); MONOCYTES # (AUTO) 0.4 (0.2-0.8); MONOCYTES % 2.3 % (4.4-11.3); NEUTROPHILS # (AUTO) 14.9 (2.1-6.9); NEUTROPHILS % 93.3 % (38.7-80.0); PLATELET COUNT 237 x10e3/uL (140-360); RED BLOOD COUNT 3.56 x10e6/uL (3.6-5.1); RED CELL DISTRIBUTION WIDTH 16.1 % (11.7-14.4)
[2020-01-08] MEDS: MEROPENEM 500MG/ NS 50ML 50 ML IV SCH ×3 (06:22→21:06)
[2020-01-08] MEDS: LEVOTHYROXINE SODIUM 112 MCG TAB PO SCH (06:22)
[2020-01-08 06:27] LABS: ANION GAP 10.1 mmol/L (8-16); BLOOD UREA NITROGEN 35 mg/dL (7-26); BUN/CREATININE RATIO 46 (6-25); CALCIUM 8.3 mg/dL (8.4-10.2); CARBON DIOXIDE 25 mmol/L (22-29); CHLORIDE 115 mmol/L (98-107); CREATININE, SERUM 0.76 mg/dL (0.57-1.11); EST GLOMERULAR FILTRATION RATE > 60 ML/MIN (60-); GLUCOSE 145 mg/dL (74-118); POTASSIUM 4.1 mmol/L (3.5-5.1); SODIUM 146 mmol/L (136-145)
[2020-01-08 07:56] LABS: ANISOCYTOSIS SLIGHT; MONOCYTES % (MANUAL) 1 % (3.4-9.0)
[2020-01-08 07:57] LABS: HYPOCHROMASIA SLIGHT; LYMPHOCYTES % (MANUAL) 1 % (19-48); NEUTROPHILS % (MANUAL) 98 % (40-74); PLATELET ESTIMATE ADEQUATE; PLATELET MORPHOLOGY COMMENT RARE EDTA CLUMPING; RBC MORPHOLOGY COMMENT ABNORMAL
--- NOTE | 2020-01-08 08:28 | Diagnostic Imaging Report ---
X-ray chest AP portable Comparison: 01/07/2020 History: Towards Findings: Life support lines and tubes unchanged. No change in pulmonary infiltrates. No other acute findings. Impression: As above. Signed by: Jorge Levy MD on 01/08/2020 8:24 AM
[2020-01-08] MEDS: CITRIC ACID/SODIUM CITRATE 30 ML UDC PO SCH ×2 (08:44→17:18)
[2020-01-08] MEDS: ENOXAPARIN SOD INJ 40 MG/0.4 ML SYR SC SCH ×2 (08:44→21:06)
[2020-01-08] MEDS: ZINC SULFATE 220 MG CAP PO SCH (08:44)
[2020-01-08] MEDS: PANTOPRAZOLE 40 MG 10ML VIAL IV SCH (08:44)
[2020-01-08] MEDS: CHLORTHALIDONE 25 MG TAB NG SCH (10:51)
[2020-01-08 13:11] LABS: ABG HCO3 26 mmol/L (22-26); ABG PCO2 59 mmHg (35-45); ABG PH 7.25 (7.35-7.45); ABG PO2 64 mmHg (80-105)
--- NOTE | 2020-01-08 16:10 | Progress Note ---
DATE: SUBJECTIVE: Ms. Gordon remains in the intensive care unit, intubated. PHYSICAL EXAMINATION: VITAL SIGNS: Stable, afebrile. HEENT: She is not icteric. NECK: Supple. CHEST: Few crackles. HEART: S1-S2. No murmur. ABDOMEN: Soft. Bowel sounds present. EXTREMITIES: No edema. IMPRESSION: Aspiration pneumonia, on meropenem and vancomycin, day #3 out of 7. Continue with supportive care. Continue Lovenox. LABORATORY DATA: Reviewed. White count 15.9 and hemoglobin of 10. Sodium 146, potassium 4.1, and creatinine 0.75. Discussed with the medical team. MD SUSY Lovett/ORESTES /[id number]
--- NOTE | 2020-01-08 17:31 | Diagnostic Imaging Report ---
EXAMINATION: CHEST SINGLE (PORTABLE) INDICATION: Possible pneumothorax. COMPARISON: Multiple prior radiograph including same day radiographs. FINDINGS: TUBES and LINES: No interval change in endotracheal tube, nasogastric tube, right PICC. There are indeterminate lines to the left of the enteric tube. LUNGS: No interval change in diffuse opacification of both lungs with areas of air bronchogram. PLEURA: No large pneumothorax identified. There is probable bilateral pleural effusion. HEART AND MEDIASTINUM: Unchanged. BONES AND SOFT TISSUES: Unchanged. UPPER ABDOMEN: Unchanged. IMPRESSION: 1. No interval change in radiographic appearance of the lungs. No large pneumothorax identified. 2. Indeterminate lines to the left of the enteric tube which may be external to the patient. Recommended clinical correlation or repeat imaging after patient repositioning. Signed by: Shu Lira MD on 01/08/2020 5:28 PM
[2020-01-08] MEDS ORDERED: SODIUM CHLORIDE 0.9% 250ML 250 ML ONE (17:37)
--- NOTE | 2020-01-08 19:43 | Diagnostic Imaging Report ---
EXAMINATION: CHEST SINGLE (PORTABLE) INDICATION: Possible pneumothorax. COMPARISON: Same day radiographs. FINDINGS: TUBES and LINES: No interval changes in the endotracheal tube which terminates approximately 3.5 cm above the gerardo, enteric tube which courses below the diaphragm, beyond field of view and right PICC. Previously seen lines projecting to the left of the enteric tube are no longer visualized and were likely external to the patient. LUNGS: No interval changes in diffuse opacification of the bilateral lungs. PLEURA: No large pneumothorax identified. There is probable bilateral pleural effusion. HEART AND MEDIASTINUM: Unchanged. BONES AND SOFT TISSUES: Unchanged. UPPER ABDOMEN: Unchanged. IMPRESSION: 1. No interval change in radiographic appearance of the lungs. No large pneumothorax identified. 2. Previously seen lines projecting to the left of the enteric tube are no longer visualized and were likely external to the patient. Signed by: Shu Lira MD on 01/08/2020 7:40 PM
[2020-01-09] VITALS (24 sets, daily range): BP systolic 100–130; BP diastolic 44–59
[2020-01-09] MEDS: MIDAZOLAM HCL 5MG/ML 10ML VIAL 100 ML IV PRN ×3 (00:15→21:23)
[2020-01-09] MEDS: VANCOMYCIN 1GM/NS 250 ML 250 ML IV SCH ×2 (03:07→14:09)
[2020-01-09] MEDS: NOREPINEPHRINE 8 MG/D5W 250 ML 250 ML IV SCH (03:19)
[2020-01-09 05:06] LABS: BASOPHILS % 0.1 % (0.0-1.0); EOSINOPHILS # (AUTO) 0.1 (0.0-0.4); EOSINOPHILS % 0.6 % (0.0-6.0); HEMATOCRIT 30.9 % (34.2-44.1); HEMOGLOBIN 8.8 g/dL (12.0-16.0); LYMPHOCYTES # (AUTO) 0.4 (1.0-3.2); LYMPHOCYTES % 2.8 % (18.0-39.1); MEAN CORPUSCULAR HEMOGLOBIN 27.7 pg (28-32); MEAN CORPUSCULAR HGB CONC 28.5 g/dL (31-35); MEAN CORPUSCULAR VOLUME 97.2 fL (81-99); MONOCYTES # (AUTO) 0.3 (0.2-0.8); MONOCYTES % 2.1 % (4.4-11.3); NEUTROPHILS # (AUTO) 13.1 (2.1-6.9); NEUTROPHILS % 93.6 % (38.7-80.0); PLATELET COUNT 212 x10e3/uL (140-360); RED BLOOD COUNT 3.18 x10e6/uL (3.6-5.1); RED CELL DISTRIBUTION WIDTH 16.5 % (11.7-14.4)
[2020-01-09 05:19] LABS: ALANINE AMINOTRANSFERASE 10 IU/L (0-55); ALBUMIN 0.8 g/dL (3.5-5.0); ALBUMIN/GLOBULIN RATIO 0.2 (0.8-2.0); ALKALINE PHOSPHATASE 167 IU/L (40-150); ANION GAP 9.4 mmol/L (8-16); BLOOD UREA NITROGEN 29 mg/dL (7-26); BUN/CREATININE RATIO 45 (6-25); CALCIUM 7.4 mg/dL (8.4-10.2); CARBON DIOXIDE 23 mmol/L (22-29); CHLORIDE 119 mmol/L (98-107); CREATININE, SERUM 0.65 mg/dL (0.57-1.11); EST GLOMERULAR FILTRATION RATE > 60 ML/MIN (60-); GLUCOSE 123 mg/dL (74-118); POTASSIUM 3.4 mmol/L (3.5-5.1); SODIUM 148 mmol/L (136-145)
[2020-01-09] MEDS: MEROPENEM 500MG/ NS 50ML 50 ML IV SCH ×3 (05:21→22:16)
[2020-01-09] MEDS: LEVOTHYROXINE SODIUM 112 MCG TAB PO SCH (05:21)
[2020-01-09] MEDS: FENTANYL 2000MCG/NS 250 250 ML IV PRN ×3 (05:49→22:46)
[2020-01-09] MEDS: INSULIN LISPRO 100 UNIT/1 ML 3ML VIAL SQ SCH ×4 (06:00→17:04)
[2020-01-09] MEDS: ROCURONIUM BROMIDE 250 MG in SODIUM CHLORIDE 0.9% 250ML 225 ML IV PRN (06:08)
[2020-01-09 08:20] LABS: HYPOCHROMASIA MODERATE; RBC MORPHOLOGY COMMENT ABNORMAL
[2020-01-09] MEDS: POTASSIUM CHLORIDE 20MEQ/100ML 100 ML IV PRN (08:35)
[2020-01-09] MEDS: PANTOPRAZOLE 40 MG 10ML VIAL IV SCH (08:36)
[2020-01-09] MEDS: ENOXAPARIN SOD INJ 40 MG/0.4 ML SYR SC SCH (08:36)
[2020-01-09] MEDS: ZINC SULFATE 220 MG CAP PO SCH (08:36)
[2020-01-09] MEDS: CITRIC ACID/SODIUM CITRATE 30 ML UDC PO SCH ×2 (08:36→17:09)
[2020-01-09] MEDS: CHLORTHALIDONE 25 MG TAB NG SCH (08:36)
--- NOTE | 2020-01-09 09:50 | Diagnostic Imaging Report ---
EXAMINATION: CHEST SINGLE (PORTABLE) INDICATION:ards COMPARISON: Multiple prior chest x-ray examinations most recent dated 01/08/2020 FINDINGS: TUBES and LINES: No interval changes in the endotracheal tube which terminates approximately 3.5 cm above the gerardo, enteric tube which courses below the diaphragm, beyond field of view and right PICC.. LUNGS/PLEURA: Bilateral patchy consolidations are unchanged. Bibasilar opacities which could be due to effusion or atelectasis are unchanged. HEART AND MEDIASTINUM: The cardiomediastinal silhouette is obscured by adjacent opacities. BONES AND SOFT TISSUES: No acute osseous finding.. IMPRESSION: Bilateral patchy consolidations secondary to ARDS are unchanged. Bibasilar opacities which could be due to effusion or atelectasis are unchanged. Signed by: Carltio Quesada MD on 01/09/2020 9:47 AM
[2020-01-09] MEDS ORDERED: SODIUM CHLORIDE 0.9% 250ML 250 ML ONE (20:32)
[2020-01-10] VITALS (24 sets, daily range): BP systolic 107–147; BP diastolic 45–63
[2020-01-10] MEDS: VANCOMYCIN 1GM/NS 250 ML 250 ML IV SCH (02:59)
[2020-01-10] MEDS: MEROPENEM 500MG/ NS 50ML 50 ML IV SCH ×2 (05:02→23:54)
[2020-01-10] MEDS: NOREPINEPHRINE 8 MG/D5W 250 ML 250 ML IV SCH (05:12)
[2020-01-10 05:42] LABS: BASOPHILS % 0.2 % (0.0-1.0); EOSINOPHILS # (AUTO) 0.1 (0.0-0.4); EOSINOPHILS % 1.1 % (0.0-6.0); HEMATOCRIT 31.8 % (34.2-44.1); HEMOGLOBIN 9.1 g/dL (12.0-16.0); LYMPHOCYTES # (AUTO) 0.5 (1.0-3.2); LYMPHOCYTES % 4.4 % (18.0-39.1); MEAN CORPUSCULAR HEMOGLOBIN 27.5 pg (28-32); MEAN CORPUSCULAR HGB CONC 28.6 g/dL (31-35); MEAN CORPUSCULAR VOLUME 96.1 fL (81-99); MONOCYTES # (AUTO) 0.3 (0.2-0.8); MONOCYTES % 2.6 % (4.4-11.3); NEUTROPHILS # (AUTO) 9.5 (2.1-6.9); NEUTROPHILS % 90.6 % (38.7-80.0); PLATELET COUNT 222 x10e3/uL (140-360); RED BLOOD COUNT 3.31 x10e6/uL (3.6-5.1); RED CELL DISTRIBUTION WIDTH 16.8 % (11.7-14.4)
[2020-01-10] MEDS: MIDAZOLAM HCL 5MG/ML 10ML VIAL 100 ML IV PRN ×2 (05:45→22:42)
[2020-01-10] MEDS: LEVOTHYROXINE SODIUM 112 MCG TAB PO SCH (05:46)
--- NOTE | 2020-01-10 05:50 | NUR ---
RT called after pt was unable to saturate above 88%. Pt was on 80%FiO2. FiO2 increased to 100% after pt desaturated after turning, and giving bath. Pt was in-lined suctioned as well as orally. RT came on unit, suctioned pt as well. Pt remains between 86-88%. Pt remains with RASS of 6, GCS 3. Sedation titrated down at versed at 5mg/hr, fentanyl at 200mcg. Shiva turned off at 2200 due to patient not responding to TOF. TOF now responsive at 6. Will report to daysokft.
[2020-01-10] MEDS: INSULIN LISPRO 100 UNIT/1 ML 3ML VIAL SQ SCH ×3 (06:00→13:26)
--- NOTE | 2020-01-10 06:17 | Diagnostic Imaging Report ---
EXAMINATION: CHEST SINGLE (PORTABLE) INDICATION: Respiratory failure COMPARISON: Chest x-ray 01/09/2020 FINDINGS: TUBES and LINES: Unchanged. LUNGS: Diffuse airspace disease. Hyperexpanded lungs. PLEURA: Unchanged. HEART AND MEDIASTINUM: Unchanged. BONES AND SOFT TISSUES: Unchanged. UPPER ABDOMEN: Unchanged. IMPRESSION: Stable support apparatus. Extensive pneumonia. Signed by: Ramin Kaiser DO on 01/10/2020 6:14 AM
[2020-01-10 06:27] LABS: ALANINE AMINOTRANSFERASE 14 IU/L (0-55); ALBUMIN/GLOBULIN RATIO 0.2 (0.8-2.0); ALKALINE PHOSPHATASE 188 IU/L (40-150); ANION GAP 7.2 mmol/L (8-16); BLOOD UREA NITROGEN 35 mg/dL (7-26); BUN/CREATININE RATIO 50 (6-25); CALCIUM 8.7 mg/dL (8.4-10.2); CARBON DIOXIDE 29 mmol/L (22-29); CHLORIDE 118 mmol/L (98-107); EST GLOMERULAR FILTRATION RATE > 60 ML/MIN (60-); GLUCOSE 124 mg/dL (74-118); POTASSIUM 4.2 mmol/L (3.5-5.1); SODIUM 150 mmol/L (136-145)
[2020-01-10 08:42] LABS: ABG PCO2 82 mmHg (35-45); ABG PH 7.17 (7.35-7.45)
[2020-01-10 08:43] LABS: ABG HCO3 30 mmol/L (22-26); ABG PO2 52 mmHg (80-105)
[2020-01-10] MEDS: ZINC SULFATE 220 MG CAP PO SCH (09:00)
[2020-01-10] MEDS: CHLORTHALIDONE 25 MG TAB NG SCH (09:13)
[2020-01-10] MEDS: PANTOPRAZOLE 40 MG 10ML VIAL IV SCH (09:13)
[2020-01-10] MEDS: FENTANYL 2000MCG/NS 250 250 ML IV PRN ×2 (09:16→21:25)
[2020-01-10] MEDS ORDERED: FUROSEMIDE INJ 10 MG/ML 4 ML VIAL IV ONE (12:15)
--- NOTE | 2020-01-10 12:24 | Diagnostic Imaging Report ---
Examination: Single AP view of the chest. COMPARISON: January 10, 2020 INDICATION: Pneumonia DISCUSSION: Lines/tubes: Endotracheal tube, enteric tube, and right PICC line are unchanged. Lungs: Diffuse pneumonia with increased consolidation. Pleura: No pleural effusion or pneumothorax. Heart and mediastinum: The heart and the mediastinum are unremarkable. Bones and soft tissues: No acute bony abnormalities. IMPRESSION: 1. Diffuse pneumonia with increased consolidation Signed by: Dr. Johnathan Stone M.D. on 01/10/2020 12:21 PM
[2020-01-10] MEDS ORDERED: FUROSEMIDE INJ 10 MG/ML 4 ML VIAL IV NR (12:30)
[2020-01-10] MEDS: FUROSEMIDE INJ 100 MG in SODIUM CHLORIDE 0.9% 100 ML 90 ML IV SCH (13:24)
--- NOTE | 2020-01-10 19:36 | NUR ---
Ms. Gordon remains vent dependent via ETT, she is sedated with fentanyl and versed, restarted paralytic after the patient's saturation began to drop inspite of adjustments to the vent settings, sedation was also increased with good results. Pt was also started on a lasix gtt because of fluid overload noted on CXR by . Attempted to wean off levophed but, was unsuccessful after the patient became hypotensive. Continuous cardiac and respiratory monitoring in progress.
[2020-01-11] VITALS (24 sets, daily range): BP systolic 93–139; BP diastolic 45–65
[2020-01-11] MEDS: MEROPENEM 500MG/ NS 50ML 50 ML IV SCH ×4 (01:00→23:24)
[2020-01-11] MEDS: VANCOMYCIN 1GM/NS 250 ML 250 ML IV SCH ×2 (04:29→14:18)
[2020-01-11] MEDS: MIDAZOLAM HCL 5MG/ML 10ML VIAL 100 ML IV PRN ×3 (04:43→23:24)
[2020-01-11] MEDS: INSULIN LISPRO 100 UNIT/1 ML 3ML VIAL SQ SCH ×5 (06:00→23:25)
[2020-01-11] MEDS: ZINC SULFATE 220 MG CAP PO SCH (08:08)
[2020-01-11] MEDS: PANTOPRAZOLE 40 MG 10ML VIAL IV SCH (08:08)
[2020-01-11] MEDS: CHLORTHALIDONE 25 MG TAB NG SCH (08:08)
[2020-01-11] MEDS: FUROSEMIDE INJ 100 MG in SODIUM CHLORIDE 0.9% 100 ML 90 ML IV SCH (08:09)
[2020-01-11] MEDS: FENTANYL 2000MCG/NS 250 250 ML IV PRN ×2 (08:10→23:23)
--- NOTE | 2020-01-11 11:04 | Diagnostic Imaging Report ---
EXAMINATION: CHEST SINGLE (PORTABLE) INDICATION: ARDS COMPARISON: Multiple prior chest radiograph, most recently of 01/10/2020 FINDINGS: LINES/TUBES:Support lines and tubes unchanged. LUNGS:Unchanged bilateral diffuse airspace opacities. PLEURA:No pleural effusion or pneumothorax. MEDIASTINUM:The cardiomediastinal silhouette appears unchanged in size and shape. BONES/SOFT TISSUES:No acute osseous injury. ABDOMEN:No free air under the diaphragm. IMPRESSION: No significant interval change. Signed by: Radha Grubbs MD on 01/11/2020 11:01 AM
[2020-01-11 11:32] LABS: ABG HCO3 35 mmol/L (22-26); ABG PCO2 78 mmHg (35-45); ABG PH 7.26 (7.35-7.45); ABG PO2 51 mmHg (80-105)
[2020-01-11] MEDS: NOREPINEPHRINE 8 MG/D5W 250 ML 250 ML IV SCH (11:34)
[2020-01-11] MEDS ORDERED: FUROSEMIDE INJ 100 MG in SODIUM CHLORIDE 0.9% 100 ML 90 ML IV SCH (12:30)
[2020-01-11] MEDS ORDERED: SODIUM CHLORIDE 0.9% 250ML 250 ML ONE (12:39)
--- NOTE | 2020-01-11 15:16 | NUR ---
Nutrition Intervention Note RD Recommendation(s) for Physician: -Continue Vital High Protein. Recommend a goal rate of 45 mL/hr (to provide 1080 kcal and 95 g protein). - Water flushes and fluid management per MD. Plan of Care: RD following, TF rec's, monitor adequacy and tolerance Nutrition reason for involvement: follow up/consult RD Assessment: 01/10: Follow up and RD received consult. Pt remains intubated. Spoke to RN who reported pt is tolerating tube feeding at 40 mL/hr per RN. Recommendations provided. Will continue to monitor. 01/05: Follow up. Pt re-evaluated per intubation status. Pt currently intubated, sedated, and paralyzed. Pt requiring high dose pressor support of Levophed a t20 mcg/min. TF of Vital HP infusing at 10 ml/hr per RN. TF discussed with RN on unit, TF rec's provided pending hemodynamic stability. Chart reviewed. Will continue to monitor. 01/03: Pt re-evaluated per MD consult for "buttermilk or yogurt TID". Chart reviewed. Pt requiring intermittent proning 2/2 respiratory status. Per chart po intake improved, 100% of meals over weekend. Pt with diarrhea, 1-3 BM daily and on questran. Labs and meds reviewed. RD to order yogurt TID with meals per MD request. Will continue to monitor. (12/30/19) Chart reviewed. Labs and meds reviewed. Pt is a 69 year old female admitted with pneumonia. Pt is COVID+. Unable to enter room due to droplet isolation precautions. It is noted that pt has diarrhea, but her appetite is improving per MD note. RN stated pt ate about 75% of her breakfast this morning. Attempted to call pt over the phone, but pt did not answer. Unable to obtain weight history from pt at this time. If PO intake is <50% of meals, offer Ensure Enlive. Will continue to monitor. Primary Diagnose(s): pneumonia PMH: Hypothyroidism, depression, gastroesophageal reflux disease, and vitamin D deficiency GI: LBM 01/01 x 2 (last documented BM) Skin: buttock wound-no staging I/O: 1429/5275 Labs: 01/09: Na 150, K 4.2, BUN 35, Cr 0.70, Glu 124 01/05: Na 131, K 4.2, BUN 28, Cr 0.94, Gluc 272 Meds: fentanyl, protonix, antibiotics, levothyroxine, norepinephrine, rocuronium, insulin, zinc sulfate, lasix, zofran Ht: 60 in Wt: 188 lbs (01/08) 168 lb (12/29) BMI: 32.9 kg/m2 (using wt of 168 lbs) IBW:100 lb Malnutrition Evaluation (01/06/20) Unable to assess due to current isolation protocol. Will re-evaluate at follow-up as appropriate. Nutrition Prescription (Diet Order): Vital HP at 50 ml/hr Estimated Nutritional Needs: 2250-0252 calories/day (22-25 kcal/kg IBW) 68-91 g protein/day (1.5-2 g pro/kg IBW) Diet Adequacy: Not meeting calorie needs, meeting protein needs at current rate of 40 mL/hr Diet Tolerance: tolerating TF Diet Education Needs Assessment: Diet education not indicated, patient intubated. Nutrition Care Level: moderate Nutrition Diagnosis: Inadequate oral intake related to acute respiratory failure/mechanical ventilation as evidenced by pt requiring enteral nutrition. Goal: Patient will meet 75-100% of estimated needs by follow up Progress: progressing Interventions: -Composition, Rate, Route, Recommended Modifications, Collaboration with other providers Monitoring/Evaluation: -Total energy intake, Total protein intake, Formula/Solution, Weight change Signed: Ruthie Stanley RD, LD
[2020-01-11] MEDS: CITRIC ACID/SODIUM CITRATE 30 ML UDC PO SCH (17:21)
--- NOTE | 2020-01-11 17:35 | NUR ---
Ms. Gordon remained ventilator dependent via ETT tube # 8.0, Vent is set to PRVC, pt not initiating any breath on her own. Sedated on Fentanyl and Propofol and paralysed with Rocuronium. Levophed at 1 mcg for hemodynamic support, attempts to wean off levophed completely were unsuccessful. MAP falls below 60 whenever the levophed is removed. Lasix gtt was discontinued as patient's sodium level is elevated. Nutritional services were consulted to increase pt's protein intake. New recommendations noted. Patient is unable to tolerate changes is position, saturation drops precipitously but improves once the pillows are removed and the patient is again supine. Oral care provided, pt observed to have multiple implants imbedded into the gums throughout his mouth.
--- NOTE | 2020-01-11 19:15 | Progress Note ---
DATE: SUBJECTIVE: Ms. Gordon remains in the intensive Care Unit, intubated, sedated. She is quite ill. Discussed with the medical team. She is on very low dose of Levophed, still on Lasix. PHYSICAL EXAMINATION: GENERAL: She is currently intubated. VITAL SIGNS: Stable, heart rate of 101, respirations 34 on the ventilator. HEENT: She is not icteric. NECK: Supple. CHEST: Crackles. HEART: S1 and S2. ABDOMEN: Soft. LABORATORY DATA: Reviewed. White count 10, hemoglobin 9.1. Sodium of 150, potassium 4.2, and creatinine 0.7. IMPRESSION: Sepsis, respiratory failure, hypernatremia, and dehydration. Currently on norepinephrine and meropenem and vancomycin. This is day #17. We will keep antibiotic till her sepsis is improved. Prognosis remains poor. Discussed with the medical team. MD SUSY Lovett/ORESTES /[id number]
--- NOTE | 2020-01-11 19:31 | NUR ---
Received report from daysmo[facility] nurse. Daughter called and was updated on pt's status. Daughter stated she spoke to MD earlier today and was given a week to make up her mind concerning comfort care. Daughter was advised to call back around 8am on the next day to clarify. Pt remains on vent at PRVC: 100%, 14 peep, RR 34, TV 320. Sedated on Fent at 250mcgs, Versed at 10mg with la at 0.008mcg. RASS 6, GCS 3.
[2020-01-12] VITALS (25 sets, daily range): BP systolic 109–145; BP diastolic 35–65
--- NOTE | 2020-01-12 04:01 | NUR ---
RT was called due to pt's increased RR. Min-Volume on vent was 2.3-2.9 with peak pressures in the 30s. Pt was saturating at 100% however RR was 50s-60s. Pt's sedation was currently versed at 10mg and Fent at 225mcg with la at 0.008mcg. Pt was able to be calmed, in-line suctioned with no secretions noted. RT checked cuff pressure. Will report to [facility].
[2020-01-12 04:23] LABS: BASOPHILS % 0.3 % (0.0-1.0); EOSINOPHILS # (AUTO) 0.2 (0.0-0.4); EOSINOPHILS % 1.8 % (0.0-6.0); HEMATOCRIT 33.8 % (34.2-44.1); HEMOGLOBIN 9.2 g/dL (12.0-16.0); LYMPHOCYTES # (AUTO) 0.4 (1.0-3.2); LYMPHOCYTES % 3.6 % (18.0-39.1); MEAN CORPUSCULAR HEMOGLOBIN 26.9 pg (28-32); MEAN CORPUSCULAR HGB CONC 27.2 g/dL (31-35); MEAN CORPUSCULAR VOLUME 98.8 fL (81-99); MONOCYTES # (AUTO) 0.3 (0.2-0.8); MONOCYTES % 2.6 % (4.4-11.3); NEUTROPHILS # (AUTO) 10.6 (2.1-6.9); NEUTROPHILS % 90.2 % (38.7-80.0); PLATELET COUNT 198 x10e3/uL (140-360); RED BLOOD COUNT 3.42 x10e6/uL (3.6-5.1); RED CELL DISTRIBUTION WIDTH 17.2 % (11.7-14.4)
[2020-01-12 04:39] LABS: ALANINE AMINOTRANSFERASE 28 IU/L (0-55); ALBUMIN 1.2 g/dL (3.5-5.0); ALBUMIN/GLOBULIN RATIO 0.3 (0.8-2.0); ALKALINE PHOSPHATASE 240 IU/L (40-150); ANION GAP 8.1 mmol/L (8-16); BLOOD UREA NITROGEN 35 mg/dL (7-26); BUN/CREATININE RATIO 49 (6-25); CALCIUM 8.8 mg/dL (8.4-10.2); CARBON DIOXIDE 36 mmol/L (22-29); CHLORIDE 115 mmol/L (98-107); CREATININE, SERUM 0.71 mg/dL (0.57-1.11); EST GLOMERULAR FILTRATION RATE > 60 ML/MIN (60-); GLUCOSE 152 mg/dL (74-118); POTASSIUM 4.1 mmol/L (3.5-5.1); SODIUM 155 mmol/L (136-145)
[2020-01-12] MEDS ORDERED: SODIUM CHLORIDE 0.9% 250ML 250 ML ONE ×2 (04:41→21:00)
[2020-01-12] MEDS: VANCOMYCIN 1GM/NS 250 ML 250 ML IV SCH ×2 (05:14→15:00)
[2020-01-12] MEDS: INSULIN LISPRO 100 UNIT/1 ML 3ML VIAL SQ SCH ×2 (06:00→18:00)
--- NOTE | 2020-01-12 07:36 | Diagnostic Imaging Report ---
Examination: Single AP view of the chest. COMPARISON: Portable chest 01/11/2020 INDICATION: ARDS IMPRESSION: 1. Lines and Tubes: Support lines and tubes are unchanged. 2. No significant interval change in diffuse bilateral interstitial and airspace opacities. Signed by: Dr. Mark Story M.D. on 01/12/2020 7:33 AM
[2020-01-12] MEDS: PANTOPRAZOLE 40 MG 10ML VIAL IV SCH (09:25)
[2020-01-12] MEDS: CITRIC ACID/SODIUM CITRATE 30 ML UDC PO SCH ×2 (09:26→16:46)
[2020-01-12] MEDS: DEXTROSE 5% 1,000 ML IV SCH (09:26)
[2020-01-12] MEDS: ZINC SULFATE 220 MG CAP PO SCH (09:26)
[2020-01-12 13:33] LABS: ABG PH 7.25 (7.35-7.45)
[2020-01-12] MEDS: MEROPENEM 500MG/ NS 50ML 50 ML IV SCH ×3 (13:33→21:39)
[2020-01-12 13:34] LABS: ABG HCO3 38 mmol/L (22-26); ABG PCO2 87 mmHg (35-45); ABG PO2 53 mmHg (80-105)
[2020-01-12 16:16] LABS: MAGNESIUM 1.9 MG/DL (1.3-2.1); POTASSIUM 3.7 mmol/L (3.5-5.1)
[2020-01-12] MEDS: NOREPINEPHRINE 8 MG/D5W 250 ML 250 ML IV SCH (16:40)
[2020-01-12] MEDS: ENOXAPARIN SOD INJ 40 MG/0.4 ML SYR SC SCH (16:45)
[2020-01-12] MEDS ORDERED: POTASSIUM CHLORIDE 10MEQ/100ML 200 ML IV ONE (16:45)
[2020-01-12] MEDS ORDERED: MAGNESIUM SULFATE 2GM/50ML 50 ML IV ONE (17:00)
--- NOTE | 2020-01-12 18:19 | NUR ---
The patient remains on full vent support via ETT, sedated on fentanyl and versed. Paralysed with Rocuronium. Sinus Rhythm/ Tach on the monitor, a 3 second run of vtach on the monitor. Dr. Alvarez was notified, cardiology consult ordered, labs sent, electrolyte abnormalities noted, magnesium and potassium was replaced. EKG performed. No other episodes of ectopy observed on the monitor. Continuous cardiac and respiratory monitoring in progress. Levophed weaned off successfully. Dr. Castle spoke with the patient's daughter regarding plan of care for the patient moving forward.
--- NOTE | 2020-01-12 18:45 | Progress Note ---
DATE: SUBJECTIVE: Ms. Gordon remains in intensive care unit. The patient remains very critical. Events noted. PHYSICAL EXAMINATION: HEENT: She is not icteric. NECK: Supple. CHEST: Crackles. HEART: S1 and S2. ABDOMEN: Soft. IMPRESSION: 1. Sepsis. 2. Respiratory failure. 3. COVID-19 . 4. Anemia. 5. Aspiration pneumonia, currently on meropenem, to finish 7 days. We will stop vancomycin and will continue meropenem for now. Continue with other care. Prognosis remains poor. Low-dose Lovenox. We will follow. MD SUSY Lovett/MODL /[id number]
[2020-01-12] MEDS: LEVOTHYROXINE SODIUM 112 MCG TAB PO SCH (19:26)
--- NOTE | 2020-01-12 20:00 | NUR ---
Received report from [facility] nurse. Pt is resting on vent, pt remains supine on back due to not tolerating being on side. Pt is synchronized with vent. Sedation: Fentanyl at 250mcg/hr, versed at 10mg/hr, and la at 0.008mcg/min/kg. Vital WNL. See spreadsheet for further documentation.
--- NOTE | 2020-01-12 21:46 | Consultation ---
DATE OF CONSULTATION: Cardiology Consult Note: The patient is intubated and sedated. HPI information taken from medical records. HISTORY OF PRESENT ILLNESS: The patient, Fallon Gordon is a 69-year-old female with primary history of hypertension, hypothyroidism, GERD, obesity, and depression, admitted complaining of worsening/increasing shortness of breath. The patient was sent to the ED by her primary care physician. The patient had a CT of the chest done and found to have extensive bilateral patchy ground-glass consolidation and is compatible with multifocal viral pneumonia. The patient is also tested positive for COVID-19 infection. The patient is now in the ICU, intubated, on ventilator support and on sedation. PAST MEDICAL HISTORY: Hypertension, hypothyroidism, GERD, obesity, and depression. PAST SURGICAL HISTORY: Hysterectomy. SOCIAL HISTORY: The patient does not smoke or use of alcohol. No illicit drug use. ALLERGIES: NO KNOWN DRUG ALLERGIES. HOME MEDICATIONS: Levothyroxine and pantoprazole. PHYSICAL EXAMINATION: CURRENT VITAL SIGNS: 131/62 blood pressure, heart rate of 93, respiratory rate of 34, 97% on mechanical ventilator, and temperature 98 degrees Fahrenheit. GENERAL: The patient is well-developed, well-nourished, in no acute respiratory distress and receiving ventilator support. SKIN: Normal in appearance and texture. Temperature is normal, warm and dry. No bruises or bruising. HEENT: The patient's cranium is normocephalic and atraumatic. Pupils are equally round and reactive. Ears are normal. Throat, the patient is intubated. No JVD. RESPIRATORY: Lungs with diminished breath sounds all throughout lung johnson. Decreased air entry at the bases. Few crackles at the bases. CARDIOVASCULAR: S1 and S2 audible. Regular rate and rhythm. No significant murmurs heard on auscultation. GI: Soft, obese, and nondistended. Bowel sounds are present. EXTREMITIES: No cyanosis. Patient has edema of bilateral lower extremities. Pulses are weak, but palpable. NEUROLOGIC: The patient is sedated. ASSESSMENT AND PLAN: The patient is a 69-year-old female admitted for acute respiratory failure/COVID-19 infection/viral pneumonia. The patient had a short episode of ventricular tachycardia today and Cardiology was consulted to evaluate. The patient is currently intubated and sedated and on norepinephrine drip for blood pressure support. EKG collected shows nonspecific ST-T changes. 1. Collect cardiac enzymes and BNP. EKG. Monitor hemodynamics/continue telemetry monitoring. 2. Collect echocardiogram to evaluate valve and LV functioning. 3. Continue current medical management and supportive measures for viral pneumonia. Diuresis needed and monitor intake and output, and replace electrolytes as needed. 4. We will continue to evaluate for further need of any cardiac intervention. Further recommendation will follow according to the patient's clinical course. Thank you for this consultation. Dictated by Aida Razo NP MD Juan HerringZA/DOMINICL /[id number]
[2020-01-12] MEDS: MIDAZOLAM HCL 5MG/ML 10ML VIAL 100 ML IV PRN (22:42)
[2020-01-12] MEDS: ROCURONIUM BROMIDE 250 MG in SODIUM CHLORIDE 0.9% 250ML 225 ML IV PRN (23:24)
[2020-01-12] MEDS: FENTANYL 2000MCG/NS 250 250 ML IV PRN (23:54)
[2020-01-13] VITALS (24 sets, daily range): BP systolic 101–123; BP diastolic 37–56
[2020-01-13] MEDS: VANCOMYCIN 1GM/NS 250 ML 250 ML IV SCH ×2 (02:21→13:30)
[2020-01-13] MEDS: MIDAZOLAM HCL 5MG/ML 10ML VIAL 100 ML IV PRN ×5 (03:26→23:00)
[2020-01-13] MEDS: LEVOTHYROXINE SODIUM 112 MCG TAB PO SCH (05:28)
[2020-01-13] MEDS: MEROPENEM 500MG/ NS 50ML 50 ML IV SCH ×3 (05:28→21:47)
[2020-01-13] MEDS: DEXTROSE 5% 1,000 ML IV SCH ×2 (05:28→19:11)
[2020-01-13 05:40] LABS: BASOPHILS % 0.2 % (0.0-1.0); EOSINOPHILS # (AUTO) 0.3 (0.0-0.4); EOSINOPHILS % 2.8 % (0.0-6.0); HEMATOCRIT 33.4 % (34.2-44.1); HEMOGLOBIN 9.2 g/dL (12.0-16.0); LYMPHOCYTES # (AUTO) 0.4 (1.0-3.2); LYMPHOCYTES % 4.2 % (18.0-39.1); MEAN CORPUSCULAR HEMOGLOBIN 27.5 pg (28-32); MEAN CORPUSCULAR HGB CONC 27.5 g/dL (31-35); MEAN CORPUSCULAR VOLUME 99.7 fL (81-99); MONOCYTES # (AUTO) 0.3 (0.2-0.8); MONOCYTES % 2.9 % (4.4-11.3); NEUTROPHILS % 88.4 % (38.7-80.0); PLATELET COUNT 186 x10e3/uL (140-360); RED BLOOD COUNT 3.35 x10e6/uL (3.6-5.1); RED CELL DISTRIBUTION WIDTH 17.4 % (11.7-14.4)
[2020-01-13] MEDS: INSULIN LISPRO 100 UNIT/1 ML 3ML VIAL SQ SCH ×4 (06:00→17:51)
[2020-01-13 06:07] LABS: ANION GAP 7.9 mmol/L (8-16); BLOOD UREA NITROGEN 29 mg/dL (7-26); BUN/CREATININE RATIO 45 (6-25); CALCIUM 8.5 mg/dL (8.4-10.2); CARBON DIOXIDE 38 mmol/L (22-29); CHLORIDE 113 mmol/L (98-107); CREATININE, SERUM 0.65 mg/dL (0.57-1.11); EST GLOMERULAR FILTRATION RATE > 60 ML/MIN (60-); GLUCOSE 123 mg/dL (74-118); POTASSIUM 3.9 mmol/L (3.5-5.1); SODIUM 155 mmol/L (136-145)
[2020-01-13] MEDS: FENTANYL 2000MCG/NS 250 250 ML IV PRN ×3 (07:02→23:00)
[2020-01-13] MEDS: ROCURONIUM BROMIDE 250 MG in SODIUM CHLORIDE 0.9% 250ML 225 ML IV PRN ×2 (07:41→14:34)
--- NOTE | 2020-01-13 07:49 | Diagnostic Imaging Report ---
Examination: Single AP view of the chest. COMPARISON: Portable chest 01/11/2020 INDICATION: Respiratory failure, pneumonia IMPRESSION: 1. Lines and Tubes: Supporting lines and tubes are unchanged. 2. No interval change in bilateral diffuse interstitial alveolar opacities consistent with multifocal pneumonia. 3. Cardiomediastinal silhouette is normal. Pulmonary vasculature is obscured. 4. No acute bony abnormalities. Signed by: Dr. Mark Story M.D. on 01/13/2020 7:46 AM
[2020-01-13] MEDS: PANTOPRAZOLE 40 MG 10ML VIAL IV SCH (09:19)
[2020-01-13] MEDS: ZINC SULFATE 220 MG CAP PO SCH (09:19)
[2020-01-13] MEDS: NOREPINEPHRINE 8 MG/D5W 250 ML 250 ML IV SCH (13:30)
[2020-01-13] MEDS: ENOXAPARIN SOD INJ 40 MG/0.4 ML SYR SC SCH (16:22)
--- NOTE | 2020-01-13 17:55 | NUR ---
pt stable throughout shift. when repositioned head and chavez, and suctioned oral secretions, pt resp 50s with sats 80s%. RT called, unable to bring patient sats up, paged
--- NOTE | 2020-01-13 18:05 | NUR ---
per Dr Shannon, pt is to be proned if o2 sats do not recover. pt is currently 93% vent 100% peep 20 RR32, la 0.008, fen 300, versed 10
--- NOTE | 2020-01-13 18:15 | Progress Note ---
DATE: SUBJECTIVE: Ms. Gordon remains extremely ill. Discussed with the family that she has ARDS. Prognosis remains poor. The patient is intubated, noncommunicative. PHYSICAL EXAMINATION: GENERAL: Intubated and sedated. VITAL SIGNS: Stable, currently afebrile. HEENT: She is not icteric. NECK: Supple. CHEST: Crackles bilateral. HEART: S1-S2. No murmurs. ABDOMEN: Soft. IMPRESSION: 1. Coronavirus disease-19, and this is day #19 of admission, respiratory failure, acute respiratory distress syndrome, arrhythmia. Prognosis remains extremely poor. Family aware. 2. Aspiration pneumonia. On Lovenox, on meropenem to finish. We will DC meropenem tomorrow morning. She will be on eight days, but then further recommendations to follow. MD SUSY Lovett/MODL /[id number]
[2020-01-14] VITALS (22 sets, daily range): BP systolic 96–119; BP diastolic 46–59
--- NOTE | 2020-01-14 03:06 | Diagnostic Imaging Report ---
Examination: Single AP view of the chest. COMPARISON: AP chest 01/13/2020 INDICATION: ARDS IMPRESSION: 1. Lines and Tubes: Supporting lines and tubes are unchanged. 2. No interval change in diffuse bilateral interstitial and alveolar opacities consistent with multifocal pneumonia or ARDS. 3. Cardiomediastinal silhouette is normal. Pulmonary vasculature is obscured. 4. No acute bony abnormalities. Signed by: Dr. Mark Story M.D. on 01/14/2020 3:03 AM
[2020-01-14 05:00] LABS: BASOPHILS % 0.4 % (0.0-1.0); EOSINOPHILS # (AUTO) 0.3 (0.0-0.4); EOSINOPHILS % 3.2 % (0.0-6.0); HEMATOCRIT 30.7 % (34.2-44.1); HEMOGLOBIN 8.3 g/dL (12.0-16.0); LYMPHOCYTES # (AUTO) 0.5 (1.0-3.2); LYMPHOCYTES % 5.1 % (18.0-39.1); MEAN CORPUSCULAR HEMOGLOBIN 27.2 pg (28-32); MEAN CORPUSCULAR VOLUME 100.7 fL (81-99); MONOCYTES # (AUTO) 0.2 (0.2-0.8); MONOCYTES % 2.2 % (4.4-11.3); NEUTROPHILS # (AUTO) 8.7 (2.1-6.9); NEUTROPHILS % 87.5 % (38.7-80.0); PLATELET COUNT 163 x10e3/uL (140-360); RED BLOOD COUNT 3.05 x10e6/uL (3.6-5.1); RED CELL DISTRIBUTION WIDTH 17.2 % (11.7-14.4)
[2020-01-14] MEDS: MIDAZOLAM HCL 5MG/ML 10ML VIAL 100 ML IV PRN ×2 (05:00→20:45)
[2020-01-14 05:28] LABS: ALANINE AMINOTRANSFERASE 26 IU/L (0-55); ALBUMIN 1.1 g/dL (3.5-5.0); ALBUMIN/GLOBULIN RATIO 0.3 (0.8-2.0); ALKALINE PHOSPHATASE 146 IU/L (40-150); BLOOD UREA NITROGEN 29 mg/dL (7-26); BUN/CREATININE RATIO 38 (6-25); CALCIUM 7.8 mg/dL (8.4-10.2); CARBON DIOXIDE 35 mmol/L (22-29); CHLORIDE 106 mmol/L (98-107); CREATININE, SERUM 0.76 mg/dL (0.57-1.11); EST GLOMERULAR FILTRATION RATE > 60 ML/MIN (60-); GLUCOSE 305 mg/dL (74-118)
[2020-01-14 05:32] LABS: SODIUM 144 mmol/L (136-145)
[2020-01-14] MEDS: DEXTROSE 5% 1,000 ML IV SCH ×2 (05:40→22:30)
[2020-01-14] MEDS: INSULIN LISPRO 100 UNIT/1 ML 3ML VIAL SQ SCH ×4 (05:43→18:00)
[2020-01-14] MEDS: FENTANYL 2000MCG/NS 250 250 ML IV PRN ×2 (05:50→23:17)
[2020-01-14] MEDS: LEVOTHYROXINE SODIUM 112 MCG TAB PO SCH (05:53)
[2020-01-14] MEDS: ROCURONIUM BROMIDE 250 MG in SODIUM CHLORIDE 0.9% 250ML 225 ML IV PRN ×3 (06:01→21:11)
[2020-01-14] MEDS: MEROPENEM 500MG/ NS 50ML 50 ML IV SCH ×2 (06:06→13:12)
[2020-01-14] MEDS: ZINC SULFATE 220 MG CAP PO SCH (09:00)
[2020-01-14] MEDS: PANTOPRAZOLE 40 MG 10ML VIAL IV SCH (09:27)
--- NOTE | 2020-01-14 13:00 | NUR ---
Per Dr. Alvarez order rapid covid test and regular covid test. Lab aware and covid tests completed and brought to the lab.
--- NOTE | 2020-01-14 14:30 | Progress Note ---
DATE: SUBJECTIVE: The patient is seen and evaluated. Available labs and notes reviewed. Discussed with the nurse. The patient remains on a vent support at 100% with PEEP of 18, respiration 32 with a tidal volume of 320. The patient remains on rocuronium, fentanyl, and Versed in prone position. PHYSICAL EXAMINATION: VITAL SIGNS: Temperature is 98.1, pulse 83, respiration 32, blood pressure 197/50, and saturation remains between 96% to 99% with the above vent setting. GENERAL: Prone position, vent support. CV: S1 and S2. CHEST: Decreased breath sounds. ABDOMEN: Obese with a BMI of 42.2. EXTREMITIES: Some trace edema. MEDICATIONS: The patient is on meropenem, rocuronium, fentanyl, Lovenox, zinc sulfate. LABORATORY STUDIES: White count 9.98, hemoglobin 8.3, and platelet 163. Sodium 144, potassium 4, and creatinine 0.76. AST is stable at 41 for past 3 days, ALT is 26, and ALP is 146. Recheck coronavirus PCR is pending. The last test was on 12/24, which was detected. MICROBIOLOGY: No recent microbiology studies available. RADIOLOGY STUDIES: Chest x-ray from today showed no interval change in the diffuse bilateral interstitial and alveolar opacities, consistent with multifocal pneumonia/ARDS. ASSESSMENT AND PLAN: 1. COVID-19 day #20 was positive on admission. 2. Respiratory failure. 3. Acute respiratory distress syndrome. 4. Arrhythmia. 5. Aspiration pneumonia. 6. We will stop meropenem. Continue the vent support, monitor the patient, overall very ill. Discussed with Dr. Villafuerte in details. Dictated by Carlito Fischer PA-C (Al) Laura Villafuerte MD /MODL /[id number]
[2020-01-14] MEDS: NOREPINEPHRINE 8 MG/D5W 250 ML 250 ML IV SCH (16:30)
[2020-01-14] MEDS: ENOXAPARIN SOD INJ 40 MG/0.4 ML SYR SC SCH (16:51)
--- NOTE | 2020-01-14 18:38 | NUR ---
Received Ms. Gordon in bed in proned position. She remained vent dependent via ETT, Sedated with Versed and Fentanyl and paralysed with Rocuronium. PO meds and feeding held during the proning period. Pt was supinated at approximately 1800. During this time pt noted to be hypotensive. Low dose of levophed was started. Continuous cardiac and respiratory monitoring in progress. Tube feeds were restarted.
[2020-01-15] VITALS (27 sets, daily range): BP systolic 73–141; BP diastolic 42–82
[2020-01-15] MEDS: MIDAZOLAM HCL 5MG/ML 10ML VIAL 100 ML IV PRN ×3 (00:57→12:32)
[2020-01-15] MEDS: ROCURONIUM BROMIDE 250 MG in SODIUM CHLORIDE 0.9% 250ML 225 ML IV PRN ×4 (01:00→12:38)
[2020-01-15] MEDS: LEVOTHYROXINE SODIUM 112 MCG TAB PO SCH (05:56)
--- NOTE | 2020-01-15 05:56 | Diagnostic Imaging Report ---
Examination: Single AP view of the chest. COMPARISON: Portable chest 01/14/2020 INDICATION: Intubated, pneumonia IMPRESSION: 1. Lines and Tubes: Supporting lines and tubes are unchanged. 2. No interval change in diffuse bilateral interstitial and alveolar opacities consistent with multifocal pneumonia or ARDS. 3. Cardiomediastinal silhouette is normal. Pulmonary vasculature is obscured. 4. No acute bony abnormalities. Signed by: Dr. Mark Story M.D. on 01/15/2020 5:53 AM
[2020-01-15 06:27] LABS: ALANINE AMINOTRANSFERASE 29 IU/L (0-55); ALBUMIN 1.1 g/dL (3.5-5.0); ALBUMIN/GLOBULIN RATIO 0.3 (0.8-2.0); ALKALINE PHOSPHATASE 131 IU/L (40-150); ANION GAP 6.5 mmol/L (8-16); BLOOD UREA NITROGEN 26 mg/dL (7-26); BUN/CREATININE RATIO 38 (6-25); CALCIUM 7.7 mg/dL (8.4-10.2); CARBON DIOXIDE 32 mmol/L (22-29); CHLORIDE 105 mmol/L (98-107); CREATININE, SERUM 0.69 mg/dL (0.57-1.11); EST GLOMERULAR FILTRATION RATE > 60 ML/MIN (60-); GLUCOSE 283 mg/dL (74-118); POTASSIUM 3.5 mmol/L (3.5-5.1); SODIUM 140 mmol/L (136-145)
[2020-01-15] MEDS: INSULIN LISPRO 100 UNIT/1 ML 3ML VIAL SQ SCH ×3 (06:35→12:00)
[2020-01-15] MEDS: FENTANYL 2000MCG/NS 250 250 ML IV PRN ×2 (06:36→12:33)
--- NOTE | 2020-01-15 07:55 | NUR ---
Network Security Engineer responded to Rapid. No family present. Provided supportive pastoral presence to staff. SIRIA Parhamlain Spiritual Care Department O: [phone]
[2020-01-15] MEDS: PANTOPRAZOLE 40 MG 10ML VIAL IV SCH (09:00)
[2020-01-15] MEDS: ZINC SULFATE 220 MG CAP PO SCH (09:00)
[2020-01-15] MEDS ORDERED: POTASSIUM CHLORIDE 20MEQ/100ML 100 ML IV PRN (09:15)
[2020-01-15] MEDS ORDERED: DEXTROSE 5% 250ML 250 ML IV ONE (12:34)
--- NOTE | 2020-01-15 13:40 | NUR ---
Indoor Landscaper/Gardener called pt's daughter, Manuela Hemphill, to offer spiritual/emotional support. Pt's daughter expecting a call back from physician. Indoor Landscaper/Gardener provided information on how to reach mask design engineer, if needed. Will follow as able. SIRIA Smith Spiritual Care Department O: [phone]
[2020-01-15] MEDS ORDERED: FUROSEMIDE INJ 10 MG/ML 4 ML VIAL IV SCH (14:00)
--- NOTE | 2020-01-15 16:15 | NUR ---
Nutrition Intervention Note RD Recommendation(s) for Physician: - Resume tube feeding when medically appropriate. Recommend Vital High Protein @ goal rate of 45 mL/hr (to provide 1080 kcal and 95 g protein). - Water flushes and fluid management per MD. Plan of Care: RD following, TF rec's, monitor adequacy and tolerance Nutrition reason for involvement: follow up RD Assessment: 01/14: Follow up. Called RN over the phone. Pt remains intubated and is currently in the prone position per RN. RN reported pts tube feeding is currently off at this time due to proning. Recommend resuming tube feeding when medically appropriate. Will continue to monitor. 01/10: Follow up and RD received consult. Pt remains intubated. Spoke to RN who reported pt is tolerating tube feeding at 40 mL/hr per RN. Recommendations provided. Will continue to monitor. 01/05: Follow up. Pt re-evaluated per intubation status. Pt currently intubated, sedated, and paralyzed. Pt requiring high dose pressor support of Levophed a t20 mcg/min. TF of Vital HP infusing at 10 ml/hr per RN. TF discussed with RN on unit, TF rec's provided pending hemodynamic stability. Chart reviewed. Will continue to monitor. 01/03: Pt re-evaluated per MD consult for "buttermilk or yogurt TID". Chart reviewed. Pt requiring intermittent proning 2/2 respiratory status. Per chart po intake improved, 100% of meals over weekend. Pt with diarrhea, 1-3 BM daily and on questran. Labs and meds reviewed. RD to order yogurt TID with meals per MD request. Will continue to monitor. (12/30/19) Chart reviewed. Labs and meds reviewed. Pt is a 69 year old female admitted with pneumonia. Pt is COVID+. Unable to enter room due to droplet isolation precautions. It is noted that pt has diarrhea, but her appetite is improving per MD note. RN stated pt ate about 75% of her breakfast this morning. Attempted to call pt over the phone, but pt did not answer. Unable to obtain weight history from pt at this time. If PO intake is <50% of meals, offer Ensure Enlive. Will continue to monitor. Primary Diagnose(s): pneumonia PMH: Hypothyroidism, depression, gastroesophageal reflux disease, and vitamin D deficiency GI: soft, round abdomen, liquid stools Skin: erythematous buttock wound I/O: 1523/1000 Labs: 01/14: Na 140, K 3.5, BUN 26, Cr 0.69, Glu 283, Ca 7.7, AST 35 01/09: Na 150, K 4.2, BUN 35, Cr 0.70, Glu 124 01/05: Na 131, K 4.2, BUN 28, Cr 0.94, Gluc 272 Meds: lasix, rocuronium, fentanyl, protonix, insulin, norepinephrine, zinc sulfate, levothyroxine, zofran Ht: 60 in Wt: 214 lbs (01/14) 188 lbs (01/08) 168 lb (12/29) BMI: 32.9 kg/m2 (using wt of 168 lbs) IBW:100 lb Malnutrition Evaluation (01/06/20) Unable to assess due to current isolation protocol. Will re-evaluate at follow-up as appropriate. Nutrition Prescription (Diet Order): Vital HP at 50 ml/hr tube feed off at this time Estimated Nutritional Needs: 3799-5820 calories/day (22-25 kcal/kg IBW) 68-91 g protein/day (1.5-2 g pro/kg IBW) Diet Adequacy: tube feed is currently off Diet Tolerance: tube feeding is being held at this time Diet Education Needs Assessment: Diet education not indicated, patient intubated. Nutrition Care Level: moderate Nutrition Diagnosis: Inadequate oral intake related to acute respiratory failure/mechanical ventilation as evidenced by pt requiring enteral nutrition. Goal: Patient will meet 75-100% of estimated needs by follow up Progress: goal not met (TF is being held at this time) Interventions: -Composition, Rate, Route, Recommended Modifications, Collaboration with other providers Monitoring/Evaluation: -Total energy intake, Total protein intake, Formula/Solution, Weight change Signed: Ruthie Stanley, RD, LD
[2020-01-15] MEDS ORDERED: MORPHINE SULFATE INJ 4 MG/ML INJ 1ML IV PRN (16:45)
[2020-01-15] MEDS: LORAZEPAM INJ 2 MG/ML VIAL IV PRN ×2 (16:54→18:06)
--- NOTE | 2020-01-15 17:15 | NUR ---
Patient received in bed this am, Vent dependent via ETT, Settings 100%/18/32/320. Dr. Monaco was notified via telephone, new orders received to prone the patient immediately. PEEP increased to 20 and pt proned as ordered at 0740 am. Saturations continued to decrease to 48%. Rapid response was called at 0751 and the ambu bag was used to aggressively oxygenate the patient. The ER MD conducting the rapid response, Dr. Mauri Enriquez called the patient's daughter Ms. Slava Hemphill at [phone] and gave her an update of the patient's condition. No decision was made in regards to goals of care at that time. Levophed was restarted as the patient was now becoming hypotensive, she continued to receive max doses of Rocuronium, Versed and fentanyl. Ms. Gordon's saturation levels began to slowly return to the upper 90's. The patient's daughter also spoke to Dr. Villafuerte, at this point the nursing staff was notified that the family advised that they would like to withdraw care due to the medical futility of continued intervention. At 1705 all the patient was terminally removed from the ventilator after discontinuing the Versed, fentanyl, rocuronium and levophed. This happened after the p with ordered Morphine 4mg and Lorazepam 1 mg IVP. All vital signs ceased and the patient was pronounced at 1730. The daughter Slava Hemphill and Dr. Alvarez was notified of the patient's passing.
--- NOTE | 2020-01-15 17:22 | Progress Note ---
DATE: SUBJECTIVE: Today, I spent more than 60 minutes, twice I had phone conference with the family about this patient, twice assessed the patient this day. The patient got a lot worse overnight. The patient's oxygenation deteriorated. She is currently on 100% PEEP of 22, on the ventilator, on vasopressors. OBJECTIVE: CHEST: With crackles. COR: S1, S2. ABDOMEN: Soft. IMPRESSION AND PLAN: Sepsis and ARDS. Discussed with the patient's family at length. Her daughter arrived with a speaker phone. After reviewing in detail the clinical progress and the patient condition, the patient has ARDS with multiorgan failure or titrate is extremely high. We discussed on several occasions, finally the family decided to go with comfort care. I have made arrangements for them to visit with the family. The patient who has been here more than 21 days and she is not infectious at the present time. They would like to stop by before we stop life support. Discussed with all the doctors and discussed with medical team at length. MD SUSY Lovett/MODL /[id number]
--- NOTE | 2020-01-15 17:57 | NUR ---
The patient's daughter Manuela Orta and the patient's spouse Mr. Fabio Gordon visited her, after assisting the family with donning proper PPE's. They were provided privacy and allowed time to be with her until they were ready to leave. All personal belongings were sent with the family.
== END 2020-01-15 21:15 | disposition expired | DRG 207 ==
LOC: ER 13:30 → ERHOLD 16:09 → IMCU 23:04 → ICU 12-26 22:51
PROVIDERS: ADMIT Internal Medicine; ATTEND Internal Medicine
PROC: 5A1955Z Respiratory Ventilation, Greater than 96 Consecutive Hours (ICD-10-PCS; 2020-01-04)
PROC: 0BH17EZ Insertion of Endotracheal Airway into Trachea, Via Natural or Artificial Opening (ICD-10-PCS; 2020-01-04)
PROC: 02HV33Z Insertion of Infusion Device into Superior Vena Cava, Percutaneous Approach (ICD-10-PCS; principal; 2020-01-05)
PROC: B548ZZA Ultrasonography of Superior Vena Cava, Guidance (ICD-10-PCS; 2020-01-05)
DX: U07.1 COVID-19 (principal); J12.89 Other viral pneumonia; J15.9 Unspecified bacterial pneumonia; J69.0 Pneumonitis due to inhalation of food and vomit; A41.9 Sepsis, unspecified organism; J96.01 Acute respiratory failure with hypoxia; J80 Acute respiratory distress syndrome; R65.21 Severe sepsis with septic shock; I47.1 Supraventricular tachycardia; E03.9 Hypothyroidism, unspecified; K21.9 Gastro-esophageal reflux disease without esophagitis; F32.9 Major depressive disorder, single episode, unspecified; E66.9 Obesity, unspecified; I10 Essential (primary) hypertension; R53.81 Other malaise; R19.7 Diarrhea, unspecified; E11.9 Type 2 diabetes mellitus without complications; Z68.33 Body mass index [BMI] 33.0-33.9, adult
CPT/HCPCS: 31500; 36415; 36569; 36600; 71045; 71250; 74018; 76604; 80048; 80053; 80076; 82550; 82553; 82805; 82947; 82948; 83605; 83735; 83880; 84100; 84132; 84443; 84484; 85025; 85610; 85730; 87040; 87070; 87205; 87493; 93005; 93306; 93970; 94002; 94003; 94664; 96361; 96372; 99285; J0330; J0456; J0696; J1100; J1650; J1940; J2060; J2250; J2270; J3370; J3475; J3480; J7030; J7042; J7050; J7070; U0002